=== PATIENT | female | born 1980 | race African-American/Black ===

== ENCOUNTER 2016-07-05 18:34 | Emergency (ER) | payer OTHER ==
[~2016-07-05 18:34] MED LIST: Sodium Chloride 0.9% 100 ML BAG ONE
[2016-07-05] MEDS ORDERED: Ondansetron HCl/PF 4 MG/2 ML Vial ONE (19:33)
[2016-07-05] MEDS ORDERED: Dexamethasone 10 MG/ML VIAL ONE (19:33)
[2016-07-05] MEDS ORDERED: methylPREDNISolone Sod Succ/PF 125 MG/2 ML VIAL ONE (19:34)
[2016-07-05] MEDS ORDERED: cefTRIAXone\\ROCEPHIN 1 GM VIAL ONE (19:34)
--- NOTE | 2016-07-05 19:40 | RAD ---
RADIOGRAPH CHEST 1 VIEW: HISTORY: 35-YEAR-OLD FEMALE WITH ACUTE DYSPNEA. FINDINGS: There are no air space densities, pulmonary edema, pneumothorax, or cardiomegaly. The lateral costo phrenic angles are sharp. IMPRESSION: No acute cardiopulmonary findings. michelle POS: [place]
[2016-07-05 19:43] LABS: Hemoglobin 12.1 g/dL (12.0-16.0); Mean Corpuscular HGB CONC 33.5 g/dL (32.0-36.0); Mean Corpuscular Hemoglobin 32.8 pg (27.0-31.0); Mean Corpuscular Volume 97.7 fl (81.0-99.0); Mean Platelet Volume 9.1 fL (7.4-10.4); Platelet Count 282 thou/uL (130-400); RBC Distribution Width 11.4 % (11.5-14.5); Red Blood Cell (RBC) Count 3.71 mill/uL (4.20-5.40)
[2016-07-05 19:44] LABS: Lymphocytes 39 % (21-51); MDiff Complete? YES; Neutrophil 47 % (42-75)
[2016-07-05 19:45] LABS: Band 8 % (5-11)
[2016-07-05 19:46] LABS: Eosinophils 1 % (0-10); Monocytes 5 % (0-10)
[2016-07-05 19:50] LABS: ALT (SGPT) 19 U/L (0-55); AST (SGOT) 21 U/L (5-34); Alkaline Phosphatase 74 U/L (40-150); Anion Gap 16 mmol/L (10-20); BUN (Urea Nitrogen) 9 mg/dL (7.0-18.7); Bilirubin, Total Less than 0.3 mg/dL (0.2-1.2); Calc. Creatinine Clearance 0 mL/min (70-130); Calcium 9.2 mg/dL (7.8-10.44); Carbon Dioxide 25 mmol/L (22-29); Chloride 103 mmol/L (98-107); Estimated GFR-MDRD Greater than 90; Globulin 2.9 g/dL (2.4-3.5); Glucose 92 mg/dL (70-105); Potassium 3.6 mmol/L (3.5-5.1); Protein, Total 6.9 g/dL (6.0-8.3); Sodium 141 mmol/L (136-145)
--- NOTE | 2016-07-05 22:39 | ERRECORD ---
[facility] EMERGENCY RECORD HPI SHORTNESS OF BREATH (20:12 LLDO) CHIEF COMPLAINT: Patient presents for evaluation of shortness of breath, Denies chest pain, Patient presents for evaluation of see triage note. cough worse today. HISTORIAN: History provided by patient, History provided by patient's spouse. LOCATION: Symptoms are generalized. QUALITY: Symptoms described as tightness. SEVERITY: Maximum severity of symptoms severe, Currently symptoms are moderate. TIME COURSE: Gradual onset of symptoms, Symptoms are worsening, are constant. ASSOCIATED WITH: Associated with anxiety, Associated with cough, Associated with chest pain, Associated with fever. EXACERBATED BY: Patient's condition exacerbated by deep breaths, Patient's condition exacerbated by exercise, Patient's condition exacerbated by lying flat, Patient's condition exacerbated by smoking. RELIEVED BY: Patient's condition relieved by nothing because patient has not tried anything for relief. RISK FACTORS: Coronary artery disease risk factors, not applicable for this patient, Thoracic aortic dissection risk factors, not applicable for this patient, Pulmonary embolism risk factors, not applicable to this patient. ROS CONSTITUTIONAL: Historian reports fatigue, reports fever, reports malaise, reports weakness. (20:22 LLDO) EYES: Negative eye review of systems, Historian denies eye pain, denies eye redness, denies eye discharge. (20:30 LLDO) ENT: Historian reports sore throat. (20:22 LLDO) CARDIOVASCULAR: Historian reports chest pain, pleuritic, no radiation, Historian reports dyspnea on exertion. (20:22 LLDO) RESPIRATORY: Historian reports cough, reports sputum. described as thick, green, yellow, Historian reports wheezing. (20:22 LLDO) GI: Historian reports nausea. (20:22 LLDO) GENITOURINARY FEMALE: Negative genitourinary review of systems, Historian denies dysuria, denies frequency, denies urgency. (20:30 LLDO) MUSCULOSKELETAL: Historian reports myalgias. (20:22 LLDO) SKIN: Negative skin review of systems, Historian denies cellulitis, denies rash, denies skin changes, denies skin lesions. (20:30 LLDO) NEUROLOGIC: Historian denies confusion, denies dizziness, denies dysphasia, denies focal weakness, denies gait changes, reports headache, denies irritability, denies lethargy, denies mental status changes. (20:22 LLDO) &a-1R&a+25V*p+0X*a3802P*c152B*c15G*c2P*p-0X&a-25V&a+1RName: Montserrat Krueger : 1980 F35 MedRec: [id number] AcctNum: [id number] Prepared: Saritha Jul 05, 2016 22:06 by Interface Page 1 of 4 pMD [facility] EMERGENCY RECORD HEMO/LYMPHATIC: Normal hematologic/lymphatic system review, Historian denies abnormal blood clotting, denies gum bleeding, denies petechiae. (20:30 LLDO) ALLERGIC/IMMUNOLOGIC: Normal allergy/immunologic system review, Historian denies eczema, denies environmental allergies, denies food allergies. (20:30 LLDO) PSYCHIATRIC: Historian reports anxiety, reports depression. (20:22 LLDO) NOTES: All systems reviewed, negative except as described above. (20:22 LLDO) PAST MEDICAL HISTORY MEDICAL HISTORY: Notes: VERIFIED 04-19-16, , Past medical history includes endocrine disease, hypothyroidism, Past medical history includes history of human immunodeficiency virus, currently under treatment, Past medical history includes history of hypertension, which has been treated, Flu vaccine up to date,ANXIETY, HYPOTHYROIDISM. REVIEWED 07/05/16. (18:42 RICCARDO) FEMALE SURGICAL HISTORY: VERIFIED 04-19-16, , Surgical history of section,. REVIEWED 07/05/16. (18:42 RICCARDO) PSYCHIATRIC HISTORY: Psychiatric history includes, anxiety, depression, Notes: VERIFIED 04-19-16, , Psychiatric history includes, anxiety, bipolar disorder, depression. REVIEWED 07/05/16. (18:42 RICCARDO) SOCIAL HISTORY: Patient denies alcohol use, Patient currently uses drugs, Drug history notes: STATES 'NONE TODAY', Patient currently uses tobacco, smokes cigarettes, daily, Patient drinks socially, twice a month, Patient currently uses drugs, abuses methamphetamines,. (18:42 RICCARDO) NOTES: Nursing records reviewed, Agree with nursing records, Medication list reviewed. (20:29 LLDO) KNOWN ALLERGIES Abilify: - Swelling to face and arms aripiprazole (Unconfirmed) Haldol tablet: - Locks up her jaw haloperidol (Unconfirmed) naproxen: - SWELLS EYES Toradol: - SWELLS EYES traMADol: - SWELLS EYES CURRENT MEDICATIONS No recorded medications VITAL SIGNS VITAL SIGNS: BP: 137/74, Pulse: 100, Resp: 22, Pain: 9, O2 sat: 99 on Room Air, Time: 07/05/2016 18:39. (18:39 RICCARDO) Temp: 98.9 (Tympanic), Time: 07/05/2016 18:41. (18:41 RICCARDO) BP: 132/71, Pulse: 87, Resp: 20, O2 sat: 100 on Room Air, Time: 07/05/2016 19:23. (19:23 RICCARDO) BP: 126/57, Pulse: 93, Resp: 16, Pain: asleep, O2 sat: 100 on Room Air, &a-1R&a+25V*p+0X*s0561Y*c152B*c15G*c2P*p-0X&a-25V&a+1RName: Pati Montserrat : 1980 F35 MedRec: [id number] AcctNum: [id number] Prepared: Saritha Jul 05, 2016 22:06 by Interface Page 2 of 4 pMD [facility] EMERGENCY RECORD Time: 07/05/2016 20:11. (20:11 RICCARDO) BP: 133/70, Pulse: 91, Resp: 16, O2 sat: 99 on Room Air, Time: 07/05/2016 21:39. (21:39 RICCARDO) PHYSICAL EXAM CONSTITUTIONAL: Vital Signs Reviewed, Patient afebrile, Pulse normal, Blood pressure normal, Respiratory rate normal, Normal pulse oximetry, Patient appears non toxic, Patient appears, in moderate pain distress, SEVERE WITH COUGH, Patient alert and oriented to person, place and time, Nursing notes reviewed. (20:27 LLDO) HEAD: Head exam normal, Head exam included findings of head atraumatic, normocephalic. (20:30 LLDO) EYES: Eye exam normal, Eye exam included findings of eyelids normal to inspection, Pupils equally round and reactive to light, Extraocular muscles intact. (20:30 LLDO) ENT: Ear exam normal, Nose exam normal, Pharynx, injected bilaterally, with swelling bilaterally, symmetrical, Uvula exam normal. (20:27 LLDO) NECK: Neck exam normal, Neck exam included findings of normal range of motion, Trachea midline, no meningeal signs, no tenderness. (20:30 LLDO) RESPIRATORY CHEST: Respiratory exam included findings of no respiratory distress, Wheezing present, Rales present, Chest exam included findings of chest movement symmetrical, Chest expansion equal, Tenderness, moderate, to bilateral anterior chest, Palpation of chest reproduces symptoms, WHEEZES MILD AND DIFFUSE AND RALES MODERATE AND DIFFUSE. (20:27 LLDO) CARDIOVASCULAR: Cardiovascular assessment normal, Cardiovascular exam included findings of heart rate regular rate and rhythm, Heart sounds normal. (20:30 LLDO) ABDOMEN FEMALE: Abdominal exam normal, Abdominal exam included findings of abdomen nontender, Bowel sounds normal, no peritoneal signs. (20:30 LLDO) BACK: Back exam normal, Back exam included findings of normal inspection, range of motion normal. (20:30 LLDO) UPPER EXTREMITY: Upper extremity exam normal, Upper extremity exam included findings of inspection normal, Range of motion normal. (20:30 LLDO) LOWER EXTREMITY: Lower extremity exam normal, Lower extremity exam included findings of inspection normal, Range of motion normal. (20:30 LLDO) NEURO: Neuro exam normal, Neuro exam findings include patient oriented to person, place and time, Speech normal, Olimpia coma scale 15. (20:30 LLDO) SKIN: Skin exam normal, Skin exam included findings of skin warm, dry, and normal in color, no rash. (20:30 LLDO) PSYCHIATRIC: Psychiatric exam normal, Psychiatric exam included findings of patient oriented to person place and time, Normal affect. (20:30 LLDO) &a-1R&a+25V*p+0X*m8993G*c152B*c15G*c2P*p-0X&a-25V&a+1RName: Montserrat Krueger : 1980 F35 MedRec: [id number] AcctNum: [id number] Prepared: Saritha Jul 05, 2016 22:06 by Interface Page 3 of 4 pMD [facility] EMERGENCY RECORD MEDICATION ADMINISTRATION SUMMARY Drug Name: Duramorph (PF), Dose Ordered: 4 mg, Route: IV Push, Status: Ordered, Time: 18:57 07/05/2016, Drug Name: DuoNeb, Dose Ordered: 1 inhalation, Route: Nebulize, Status: Given, Time: 19:56 07/05/2016, Drug Name: Rocephin intravenous, Dose Ordered: 1 g, Route: IV Piggy Back, Status: Given, Time: 19:50 07/05/2016, Drug Name: Solu-MEDROL Mix-O-Vial, Dose Ordered: 125 mg, Route: IV Push, Status: Given, Time: 19:49 07/05/2016, Drug Name: Decadron injection, Dose Ordered: 10 mg, Route: IV Push, Status: Given, Time: 19:44 07/05/2016, Drug Name: Zofran intravenous, Dose Ordered: 8 mg, Route: IV Push, Status: Given, Time: 19:42 07/05/2016, Drug Name: DuoNeb, Dose Ordered: 1 inhalation, Route: Nebulize, Status: Given, Time: 19:31 07/05/2016, Detailed record available in Medication Service section. PROBLEM LIST No recorded problems DIAGNOSIS (21:42 LLDO) FINAL: PRIMARY: Acute bronchitis, ADDITIONAL: RIGHT hip pain. PRESCRIPTION (21:48 LLDO) gabapentin: TABLET : 300 mg : ORAL : Quantity: 1 Unit: tab(s) Route: ORAL Schedule: 2 times a day Dispense: 30 Unit: tab(s) May substitute. Refills: 1 . amoxicillin: CAPSULE (HARD, SOFT, ETC.) : 500 mg : ORAL : Quantity: 1 Unit: cap(s) Route: ORAL Schedule: 3 times a day Dispense: 30 Unit: cap(s) May substitute. Refills: No Refills . Phenergan DM: SYRUP : : ORAL : Quantity: 1-2 Unit: teaspoon Route: ORAL Schedule: every 4 hours prn Dispense: 180 Unit: mL May substitute. Refills: No Refills . predniSONE oral: TABLET : 20 mg : ORAL : Quantity: * Unit: Route: ORAL Schedule: See Notes Dispense: 2O May substitute. Refills: No Refills . NOTES: 3 TABS PER DAY FOR 3 DAYS, THEN 2 TABS PER DAY FOR 3 DAYS, THEN ONE TAB PER DAY UNTIL GONE. DISPOSITION PATIENT: Disposition Type: Discharge, Disposition: *Discharge Home. (21:42 ZAHIRA) Patient left the department. (22:02 RICCARDO) Goodman: RICCARDO=TABITHA Milian, Mira RODRIGES=MD Hakan, Victoriano &a-1R&a+25V*p+0X*[id number]*c152B*c15G*c2P*p-0X&a-25V&a+1RName: Montserrat Krueger : 1980 F35 MedRec: [id number] AcctNum: [id number] Prepared: Saritha Jul 05, 2016 22:06 by Interface Page 4 of 4 pMD MTDD
--- NOTE | 2016-07-05 22:47 | PICIS ---
[facility] EMERGENCY RECORD TRIAGE (WedJul 05, 2016 18:40 RICCARDO) TRIAGE NOTES: Cough for one week, fever, shortness of breath started tonight. (WedJul 05, 2016 18:40 RICCARDO) PATIENT: NAME: Montserrat Krueger, AGE: 35, GENDER: female, : Wed1980, TIME OF GREET: WedJul 05, 2016 18:35, PREFERRED LANGUAGE: Brazilian, ETHNICITY: Not or , HIGH ALERT: HIGH ALERT 3, FALL RISK: NO, ECODE BILLING MAP: [facility], SSN: [id number], Zip Code: [address], KG WEIGHT: 73.03, PHONE: , , , PERSON ID: [id number], PCP: MD RIVERA IMELDA. (WedJul 05, 2016 18:40 RICCARDO) COMPLAINT: TROUBLE BREATHING. (WedJul 05, 2016 18:40 RICCARDO) ADMISSION: URGENCY: 3 Urgent, ADMISSION SOURCE: Home, TRANSPORT: Walk-in, BED: TRIAGE. (WedJul 05, 2016 18:40 RICCARDO) ASSESSMENT: Additional Triage notes: Patient c/o cough and shortness of breath. Cough x1 week. SOB started earlier this evening. (18:42 RICCARDO) IMMUNIZATIONS: Flu vaccine not up to date, Tetanus immunization up to date, Pneumococcal vaccine not up to date. (18:42 RICCARDO) SIRS SCORING: Heart Rate 110-139 (2), Temp range 96.8-101.1 (0), respiratory rate 12-24 (0), Latest WBC 3-14.9 (0), Mental Status altered: no (0), Infection or Suspected Infection: No. (18:42 RICCARDO) PROVIDERS: TRIAGE NURSE: Mira Milian RN. (WedJul 05, 2016 18:40 RICCARDO) VITAL SIGNS: BP 137/74, Pulse 100, Resp 22, Pain 9, O2 Sat 99, on Room Air, Time 07/05/2016 18:39. (18:39 RICCARDO) PREVIOUS VISIT ALLERGIES: Abilify, Haldol tablet, naproxen, Toradol, traMADol. (WedJul 05, 2016 18:40 RICCARDO) Abilify, Haldol tablet, naproxen, Toradol, traMADol. (18:42 RICCARDO) KNOWN ALLERGIES Abilify: - Swelling to face and arms aripiprazole (Unconfirmed) Haldol tablet: - Locks up her jaw haloperidol (Unconfirmed) naproxen: - SWELLS EYES Toradol: - SWELLS EYES traMADol: - SWELLS EYES CURRENT MEDICATIONS No recorded medications VITAL SIGNS VITAL SIGNS: BP: 137/74, Pulse: 100, Resp: 22, Pain: 9, O2 sat: 99 on Room Air, Time: 07/05/2016 18:39. (18:39 RICCARDO) Temp: 98.9 (Tympanic), Time: 07/05/2016 18:41. (18:41 RICCARDO) BP: 132/71, Pulse: 87, Resp: 20, O2 sat: 100 on Room Air, Time: 07/05/2016 19:23. (19:23 RICCARDO) BP: 126/57, Pulse: 93, Resp: 16, Pain: asleep, O2 sat: 100 on Room Air, &a-1R&a+25V*p+0X*p8385O*c152B*c15G*c2P*p-0X&a-25V&a+1RName: Montserrat Krueger : 1980 F35 MedRec: [id number] AcctNum: [id number] Prepared: Saritha Jul 05, 2016 22:06 by Interface Page [address] [facility] EMERGENCY RECORD Time: 07/05/2016 20:11. (20:11 RICCARDO) BP: 133/70, Pulse: 91, Resp: 16, O2 sat: 99 on Room Air, Time: 07/05/2016 21:39. (21:39 RICCARDO) NURSING ASSESSMENT: RESPIRATORY /CHEST (18:45 RICCARDO) CONSTITUTIONAL: Patient arrives ambulatory, Gait steady, History obtained from patient, Patient appears comfortable, Patient cooperative, Patient alert, Oriented to person, place and time, Skin warm, Skin dry, Skin normal in color, Mucous membranes pink, Mucous membranes moist, Patient is well-groomed, Patient c/o cough for one week and shortness of breath that started eralier this evening. RESPIRATORY/CHEST: Breath sounds clear, Respiratory assessment findings include respiratory effort easy, Respirations regular, Conversing normally, Neck and chest exam findings include trachea midline, Chest expansion equal, Chest movement symmetrical, Associated with cough, productive of, yellow sputum. ENT: Ear assessment findings include ear normal to inspection, Nasal assessment findings include nose normal to inspection, Sinuses normal, Nasal mucosa normal, Mouth and throat assessment findings include mouth inspection normal, Uvula normal, Tonsils normal, Mucous membranes pink, and moist, Able to swallow, Speech normal. SAFETY: Side rails up, Cart/Stretcher in lowest position, Call light within reach, Hospital ID band on. NURSING PROCEDURE: DISCHARGE NOTE (22:02 RICCARDO) DISCHARGE: Patient discharged to home, ambulating without assistance, family driving, unaccompanied, Discharge instructions given to patient, Prescriptions given and instructions on side effects given, Above person(s) verbalized understanding of discharge instructions and follow-up care. BELONGINGS: Belongings and valuables with patient upon arrival to the Emergency Department include:, Belongings and valuables with patient at time of discharge include:, Belongings remain with patient, Valuables remain with patient. SAFETY: Side rails up, Cart/Stretcher in lowest position, Call light within reach, Hospital ID band on. NURSING PROCEDURE: ENT (19:10 RICCARDO) PATIENT IDENTIFIER: Patient actively involved in identification process, Patient's identity verified by patient stating name, Patient's identity verified by patient stating date, Patient's identity verified by hospital ID bracelet. ENT: Nasal swab collected, labeled in the presence of the patient and sent to lab for testing of, influenza A, influenza B, collected by JAY. SAFETY: Side rails up, Cart/Stretcher in lowest position, Call light within reach, Hospital ID band on. NURSING PROCEDURE: IV (21:58 RICCARDO) &a-1R&a+25V*p+0X*i7208E*c152B*c15G*c2P*p-0X&a-25V&a+1RName: Pati Montserrat : 1980 F35 MedRec: [id number] AcctNum: [id number] Prepared: Saritha Jul 05, 2016 22:06 by Interface Page [address] [facility] EMERGENCY RECORD PATIENT IDENITIFIER: Patient actively involved in identification process, Patient's identity verified by patient stating name, Patient's identity verified by patient stating date, Patient's identity verified by hospital ID bracelet. FOLLOW-UP SITE 1: IV discontinued, due to patient being discharged, catheter intact. SAFETY: Side rails up, Cart/Stretcher in lowest position, Call light within reach, Hospital ID band on. NURSING PROCEDURE: NURSE NOTES NURSES NOTES: Patient assisted to bathroom with steady gait. (19:10 RICCARDO) Notes: Patient resting in the bed looking at FB on her phone. Patient is alert and oriented, no acute distress. No needs at this time. (19:15 RICCARDO) Notes: Patient asleep in the room. No acute distress. No needs at this time. (20:10 RICCARDO) ORDER DETAILS Order Name: CBC with Differential, Status: Active, Time: 18:59 07/05/2016, User: ZAHIRA, - Ordered for: MD Mcclendon Lloyd, - Entered by: MD Mcclendon Lloyd - Sun Jul 05, 2016 18:59, - Quantity: 1, Order Name: Comprehensive Metabolic Panel, Status: Active, Time: 18:59 07/05/2016, User: CONNIEDO, - Ordered for: MD Mcclendon Lloyd, - Entered by: MD Mcclendon Lloyd - Sun Jul 05, 2016 18:59, - Quantity: 1, Order Name: Influenza A&B Ag Screen, Status: Active, Time: 19:04 07/05/2016, User: LL, - Ordered for: MD Mcclendon Lloyd, - Entered by: MD Mcclendon Lloyd - Sun Jul 05, 2016 19:04, - Quantity: 1, Order Name: SALINE LOCK, Status: Done, Time: 19:23 07/05/2016, User: RICCARDO, - Ordered for: MD Mcclendon Lloyd, - Entered by: MD Mcclendon Lloyd - Sun Jul 05, 2016 19:03, - Quantity: 1, Order Name: XR Chest 1 View Portable, Status: Active, Time: 19:03 07/05/2016, User: LLDO, - Ordered for: MD Mcclendon Lloyd, - Entered by: MD Mcclendon Lloyd - Sun Jul 05, 2016 19:03, - Quantity: 1. MEDICATION ADMINISTRATION SUMMARY Drug Name: Duramorph (PF), Dose Ordered: 4 mg, Route: IV Push, Status: Ordered, Time: 18:57 07/05/2016, Drug Name: DuoNeb, Dose Ordered: 1 inhalation, Route: Nebulize, &a-1R&a+25V*p+0X*p5383T*c152B*c15G*c2P*p-0X&a-25V&a+1RName: Montserrat Krueger : 1980 F35 MedRec: [id number] AcctNum: [id number] Prepared: Saritha Jul 05, 2016 22:06 by Interface Page [address] [facility] EMERGENCY RECORD Status: Given, Time: 19:56 07/05/2016, Drug Name: Rocephin intravenous, Dose Ordered: 1 g, Route: IV Piggy Back, Status: Given, Time: 19:50 07/05/2016, Drug Name: Solu-MEDROL Mix-O-Vial, Dose Ordered: 125 mg, Route: IV Push, Status: Given, Time: 19:49 07/05/2016, Drug Name: Decadron injection, Dose Ordered: 10 mg, Route: IV Push, Status: Given, Time: 19:44 07/05/2016, Drug Name: Zofran intravenous, Dose Ordered: 8 mg, Route: IV Push, Status: Given, Time: 19:42 07/05/2016, Drug Name: DuoNeb, Dose Ordered: 1 inhalation, Route: Nebulize, Status: Given, Time: 19:31 07/05/2016, Detailed record available in Medication Service section. MEDICATION SERVICE Decadron injection: Order: Decadron injection (dexamethasone sod phosphate) - Dose: 10 mg : IV Push Schedule: Now Ordered by: Victoriano Mcclendon MD Entered by: MD Saritha Jimenez Jul 05, 2016 18:57 , Acknowledged by: TABITHA Bundy Jul 05, 2016 19:04 Documented as given by: TABITHA Bundy Jul 05, 2016 19:44 Patient, Medication, Dose, Route and Time verified prior to administration. IV SITE #1 IVP, initial medication, Slowly, Catheter placement confirmed via flush prior to administration, IV site without signs or symptoms of infiltration during medication administration, No swelling during administration, No drainage during administration, IV flushed after administration, Correct patient, time, route, dose and medication confirmed prior to administration, Patient advised of actions and side-effects prior to administration, Allergies confirmed and medications reviewed prior to administration, Patient in position of comfort, Side rails up, Cart in lowest position. DuoNeb: Order: DuoNeb (ipratropium bromide/albuterol sulfate) - Dose: 1 inhalation : Nebulize Schedule: Every 5 minutes Repeat: 3 DOSES Ordered by: Victoriano Mcclendon MD Entered by: MD Saritha Jimenez Jul 05, 2016 18:57 , Acknowledged by: TABITHA Bundy Jul 05, 2016 19:04 Documented as given by: TABITHA Bundy Jul 05, 2016 19:31 Patient, Medication, Dose, Route and Time verified prior to administration. Site: Medication administered via continuous nebulizer, With oxygen, Correct patient, time, route, dose and medication confirmed prior to administration, Patient advised of actions and side-effects prior to administration, Allergies confirmed and medications reviewed prior to administration, Patient in position of comfort, Side rails up, Cart in lowest position. DuoNeb: Order: DuoNeb (ipratropium bromide/albuterol sulfate) - Dose: 1 inhalation : Nebulize Schedule: Every 5 minutes Repeat: 3 DOSES Ordered by: Victoriano Mcclendon MD &a-1R&a+25V*p+0X*s3178X*c152B*c15G*c2P*p-0X&a-25V&a+1RName: Pati Montserrat : 1980 F35 MedRec: [id number] AcctNum: [id number] Prepared: Saritha Jul 05, 2016 22:06 by Interface Page [address] [facility] EMERGENCY RECORD Entered by: TABITHA Bundy Jul 05, 2016 19:56 , Acknowledged by: TABITHA Bundy Jul 05, 2016 19:56 Documented as given by: TABIHTA Bundy Jul 05, 2016 19:56 Patient, Medication, Dose, Route and Time verified prior to administration. Site: Medication administered via Hand-held nebulizer, With oxygen, Correct patient, time, route, dose and medication confirmed prior to administration, Patient advised of actions and side-effects prior to administration, Allergies confirmed and medications reviewed prior to administration, Patient in position of comfort, Side rails up, Cart in lowest position. Duramorph (PF): Order: Duramorph (PF) (morphine sulfate/preservative free) - Dose: 4 mg : IV Push POTENTIAL ALLERGY REACTION: 'traMADol [tramadol/tramadol HCl]' - Reviewed with patient, pt says can safely take this med Schedule: Now Ordered by: Victoriano Mcclendon MD Entered by: Victoriano Mcclendon MD [place] Jul 05, 2016 18:57 , Acknowledged by: Mira Milian RN [place] Jul 05, 2016 19:04. Rocephin intravenous: Order: Rocephin intravenous (ceftriaxone sodium) - Dose: 1 g : IV Piggy Back Schedule: Now Ordered by: Victoriano Mcclendon MD Entered by: Victoriano Mcclendon MD [place] Jul 05, 2016 18:57 , Acknowledged by: Mira Milian RN [place] Jul 05, 2016 19:04 Documented as given by: Mira Milian RN [place] Jul 05, 2016 19:50 Patient, Medication, Dose, Route and Time verified prior to administration. IV SITE #1 IVPB or drip, initial infusion, IVPB mixed in: 100ml, Fluid: 0.9NS, via primary tubing, on an IV pump, Catheter placement confirmed via flush prior to administration, IV site without signs or symptoms of infiltration during medication administration, No swelling during administration, No drainage during administration, IV flushed after administration, Correct patient, time, route, dose and medication confirmed prior to administration, Patient advised of actions and side-effects prior to administration, Allergies confirmed and medications reviewed prior to administration, Patient in position of comfort, Side rails up, Cart in lowest position. : Follow Up : _IV SITE #1:_, Medication infusion discontinued, on [place] Jul 05, 2016 20:40, 50 minutes, ., Total amount infused: 100 ml, Advised not to ambulate without assistance, Patient in position of comfort, Side rails up, Cart in lowest position. (20:40 RICCARDO) Solu-MEDROL Mix-O-Vial: Order: Solu-MEDROL Mix-O-Vial (methylprednisolone sod succ) - Dose: 125 mg : IV Push Schedule: Now Ordered by: Victoriano Mcclendon MD Entered by: MD Saritha Jimenez Jul 05, 2016 18:57 , Acknowledged by: TABITHA Bundy Jul 05, 2016 19:04 Documented as given by: TABITHA Bundy Jul 05, 2016 19:49 Patient, Medication, Dose, Route and Time verified prior to &a-1R&a+25V*p+0X*o8126O*c152B*c15G*c2P*p-0X&a-25V&a+1RName: Montserrat Krueger : 1980 F35 MedRec: [id number] AcctNum: [id number] Prepared: Saritha Jul 05, 2016 22:06 by Interface Page [address] [facility] EMERGENCY RECORD administration. IV SITE #1 IVP, initial medication, Slowly, Catheter placement confirmed via flush prior to administration, IV site without signs or symptoms of infiltration during medication administration, No swelling during administration, No drainage during administration, IV flushed after administration, Correct patient, time, route, dose and medication confirmed prior to administration, Patient advised of actions and side-effects prior to administration, Allergies confirmed and medications reviewed prior to administration, Patient in position of comfort, Side rails up, Cart in lowest position. Zofran intravenous: Order: Zofran intravenous (ondansetron HCl) - Dose: 8 mg : IV Push Schedule: Now Ordered by: Victoriano Mcclendon MD Entered by: MD Saritha Jimenez Jul 05, 2016 18:58 , Acknowledged by: TABITHA Bundy Jul 05, 2016 19:04 Documented as given by: TABITAH Bundy Jul 05, 2016 19:42 Patient, Medication, Dose, Route and Time verified prior to administration. IV SITE #1 IVP, initial medication, Slowly, Catheter placement confirmed via flush prior to administration, IV site without signs or symptoms of infiltration during medication administration, No swelling during administration, No drainage during administration, IV flushed after administration, Correct patient, time, route, dose and medication confirmed prior to administration, Patient advised of actions and side-effects prior to administration, Allergies confirmed and medications reviewed prior to administration, Patient in position of comfort, Side rails up, Cart in lowest position. HPI SHORTNESS OF BREATH (20:12 LLDO) CHIEF COMPLAINT: Patient presents for evaluation of shortness of breath, Denies chest pain, Patient presents for evaluation of see triage note. cough worse today. HISTORIAN: History provided by patient, History provided by patient's spouse. LOCATION: Symptoms are generalized. QUALITY: Symptoms described as tightness. SEVERITY: Maximum severity of symptoms severe, Currently symptoms are moderate. TIME COURSE: Gradual onset of symptoms, Symptoms are worsening, are constant. ASSOCIATED WITH: Associated with anxiety, Associated with cough, Associated with chest pain, Associated with fever. EXACERBATED BY: Patient's condition exacerbated by deep breaths, Patient's condition exacerbated by exercise, Patient's condition exacerbated by lying flat, Patient's condition exacerbated by smoking. RELIEVED BY: Patient's condition relieved by nothing because patient has not tried anything for relief. RISK FACTORS: Coronary artery disease risk factors, not applicable for this patient, Thoracic aortic dissection risk factors, not applicable for this patient, &a-1R&a+25V*p+0X*q1399S*c152B*c15G*c2P*p-0X&a-25V&a+1RName: Pati Montserrat : 1980 F35 MedRec: [id number] AcctNum: [id number] Prepared: Saritha Jul 05, 2016 22:06 by Interface Page [address] [facility] EMERGENCY RECORD Pulmonary embolism risk factors, not applicable to this patient. ROS CONSTITUTIONAL: Historian reports fatigue, reports fever, reports malaise, reports weakness. (20:22 LLDO) EYES: Negative eye review of systems, Historian denies eye pain, denies eye redness, denies eye discharge. (20:30 LLDO) ENT: Historian reports sore throat. (20:22 LLDO) CARDIOVASCULAR: Historian reports chest pain, pleuritic, no radiation, Historian reports dyspnea on exertion. (20:22 LLDO) RESPIRATORY: Historian reports cough, reports sputum. described as thick, green, yellow, Historian reports wheezing. (20:22 LLDO) GI: Historian reports nausea. (20:22 LLDO) GENITOURINARY FEMALE: Negative genitourinary review of systems, Historian denies dysuria, denies frequency, denies urgency. (20:30 LLDO) MUSCULOSKELETAL: Historian reports myalgias. (20:22 LLDO) SKIN: Negative skin review of systems, Historian denies cellulitis, denies rash, denies skin changes, denies skin lesions. (20:30 LLDO) NEUROLOGIC: Historian denies confusion, denies dizziness, denies dysphasia, denies focal weakness, denies gait changes, reports headache, denies irritability, denies lethargy, denies mental status changes. (20:22 LLDO) HEMO/LYMPHATIC: Normal hematologic/lymphatic system review, Historian denies abnormal blood clotting, denies gum bleeding, denies petechiae. (20:30 LLDO) ALLERGIC/IMMUNOLOGIC: Normal allergy/immunologic system review, Historian denies eczema, denies environmental allergies, denies food allergies. (20:30 LLDO) PSYCHIATRIC: Historian reports anxiety, reports depression. (20:22 LLDO) NOTES: All systems reviewed, negative except as described above. (20:22 LLDO) PAST MEDICAL HISTORY MEDICAL HISTORY: Notes: VERIFIED 04-19-16, , Past medical history includes endocrine disease, hypothyroidism, Past medical history includes history of human immunodeficiency virus, currently under treatment, Past medical history includes history of hypertension, which has been treated, Flu vaccine up to date,ANXIETY, HYPOTHYROIDISM. REVIEWED 07/05/16. (18:42 RICCARDO) FEMALE SURGICAL HISTORY: VERIFIED 04-19-16, , Surgical history of section,. REVIEWED 07/05/16. (18:42 RICCARDO) PSYCHIATRIC HISTORY: Psychiatric history includes, anxiety, depression, Notes: VERIFIED 04-19-16, , Psychiatric history includes, &a-1R&a+25V*p+0X*y9605G*c152B*c15G*c2P*p-0X&a-25V&a+1RName: Montserrat Krueger : 1980 F35 MedRec: [id number] AcctNum: [id number] Prepared: Saritha Jul 05, 2016 22:06 by Interface Page [address] [facility] EMERGENCY RECORD anxiety, bipolar disorder, depression. REVIEWED 07/05/16. (18:42 RICCARDO) SOCIAL HISTORY: Patient denies alcohol use, Patient currently uses drugs, Drug history notes: STATES 'NONE TODAY', Patient currently uses tobacco, smokes cigarettes, daily, Patient drinks socially, twice a month, Patient currently uses drugs, abuses methamphetamines,. (18:42 RICCARDO) NOTES: Nursing records reviewed, Agree with nursing records, Medication list reviewed. (20:29 LLDO) PHYSICAL EXAM CONSTITUTIONAL: Vital Signs Reviewed, Patient afebrile, Pulse normal, Blood pressure normal, Respiratory rate normal, Normal pulse oximetry, Patient appears non toxic, Patient appears, in moderate pain distress, SEVERE WITH COUGH, Patient alert and oriented to person, place and time, Nursing notes reviewed. (20:27 LLDO) HEAD: Head exam normal, Head exam included findings of head atraumatic, normocephalic. (20:30 LLDO) EYES: Eye exam normal, Eye exam included findings of eyelids normal to inspection, Pupils equally round and reactive to light, Extraocular muscles intact. (20:30 LLDO) ENT: Ear exam normal, Nose exam normal, Pharynx, injected bilaterally, with swelling bilaterally, symmetrical, Uvula exam normal. (20:27 LLDO) NECK: Neck exam normal, Neck exam included findings of normal range of motion, Trachea midline, no meningeal signs, no tenderness. (20:30 LLDO) RESPIRATORY CHEST: Respiratory exam included findings of no respiratory distress, Wheezing present, Rales present, Chest exam included findings of chest movement symmetrical, Chest expansion equal, Tenderness, moderate, to bilateral anterior chest, Palpation of chest reproduces symptoms, WHEEZES MILD AND DIFFUSE AND RALES MODERATE AND DIFFUSE. (20:27 LLDO) CARDIOVASCULAR: Cardiovascular assessment normal, Cardiovascular exam included findings of heart rate regular rate and rhythm, Heart sounds normal. (20:30 LLDO) ABDOMEN FEMALE: Abdominal exam normal, Abdominal exam included findings of abdomen nontender, Bowel sounds normal, no peritoneal signs. (20:30 LLDO) BACK: Back exam normal, Back exam included findings of normal inspection, range of motion normal. (20:30 LLDO) UPPER EXTREMITY: Upper extremity exam normal, Upper extremity exam included findings of inspection normal, Range of motion normal. (20:30 LLDO) LOWER EXTREMITY: Lower extremity exam normal, Lower extremity exam included findings of inspection normal, Range of motion normal. (20:30 LLDO) NEURO: Neuro exam normal, Neuro exam findings include patient oriented to person, place and time, Speech normal, Olimpia coma scale &a-1R&a+25V*p+0X*q2170P*c152B*c15G*c2P*p-0X&a-25V&a+1RName: Montserrat Krueger : 1980 F35 MedRec: [id number] AcctNum: [id number] Prepared: Saritha Jul 05, 2016 22:06 by Interface Page [address] [facility] EMERGENCY RECORD 15. (20:30 LLDO) SKIN: Skin exam normal, Skin exam included findings of skin warm, dry, and normal in color, no rash. (20:30 LLDO) PSYCHIATRIC: Psychiatric exam normal, Psychiatric exam included findings of patient oriented to person place and time, Normal affect. (20:30 LLDO) EVENTS TRANSFER: Triage to Emergency Triage. (Saritha Jul 05, 2016 18:40 RICCARDO) Emergency Triage to Main ED -02. (18:41 LLDO) Emergency Main ED -02 to -01. (20:34 RICCARDO) Emergency Main ED -01 to -02. (20:34 RICCARDO) Removed from Emergency Main ED -02. (22:02 RICCARDO) PROBLEM LIST No recorded problems DIAGNOSIS (21:42 LLDO) FINAL: PRIMARY: Acute bronchitis, ADDITIONAL: RIGHT hip pain. DISPOSITION PATIENT: Disposition Type: Discharge, Disposition: *Discharge Home. (21:42 LLDO) Patient left the department. (22:02 RICCARDO) INSTRUCTION (21:52 LLDO) DISCHARGE: BRONCHITIS, ABX TX (ADULT), HIP STRAIN. FOLLOWUP: MD MIGUEL, [facility], [facility], [address] [place] [id number], [phone], Follow up with Primary Care Physician in 10 days. SPECIAL: Follow-up with your PCP. PRESCRIPTION (21:48 LLDO) gabapentin: TABLET : 300 mg : ORAL : Quantity: 1 Unit: tab(s) Route: ORAL Schedule: 2 times a day Dispense: 30 Unit: tab(s) May substitute. Refills: 1 . amoxicillin: CAPSULE (HARD, SOFT, ETC.) : 500 mg : ORAL : Quantity: 1 Unit: cap(s) Route: ORAL Schedule: 3 times a day Dispense: 30 Unit: cap(s) May substitute. Refills: No Refills . Phenergan DM: SYRUP : : ORAL : Quantity: 1-2 Unit: teaspoon Route: ORAL Schedule: every 4 hours prn Dispense: 180 Unit: mL May substitute. Refills: No Refills . predniSONE oral: TABLET : 20 mg : ORAL : Quantity: * Unit: Route: ORAL Schedule: See Notes Dispense: 2O May substitute. Refills: No Refills . NOTES: 3 TABS PER DAY FOR 3 DAYS, THEN 2 TABS PER DAY FOR 3 &a-1R&a+25V*p+0X*b8353I*c152B*c15G*c2P*p-0X&a-25V&a+1RName: Montserrat Krueger : 1980 F35 MedRec: [id number] AcctNum: [id number] Prepared: Saritha Jul 05, 2016 22:06 by Interface Page [address] [facility] EMERGENCY RECORD DAYS, THEN ONE TAB PER DAY UNTIL GONE. IMAGING *DISCHARGE INSTRUCTIONS RECEIPT: Image captured from scanner. (22:00 RICCARDO) Page 2 added. Image captured from scanner. (22:00 RICCARDO) *SUPPLY CHARGE SHEET: Image captured from scanner. (22:01 RICCARDO) Page 2 added. Image captured from scanner. (22:02 RICCARDO) ADMIN DIGITAL SIGNATURE: MD Mcclendon Lloyd. (21:50 LLDO) MD Mcclendon Lloyd. (21:53 LLDO) MD Mcclendon Lloyd. (21:53 LLDO) MD Mcclendon Lloyd. (21:53 LLDO) MD Mcclendon Lloyd. (21:53 LLDO) MD Mcclendon Lloyd. (21:53 LLDO) MD Mcclendon Lloyd. (21:53 LLDO) MD Mcclendon Lloyd. (21:53 LLDO) MD Mcclendon Lloyd. (21:53 LLDO) MD Mcclendon Lloyd. (21:53 LLDO) MD Mcclendon Lloyd. (21:53 LLDO) MD Mcclendon Lloyd. (21:53 LLDO) MD Mcclendon Lloyd. (21:53 LLDO) MD Mcclendon Lloyd. (21:53 LLDO) MD Mcclendon Lloyd. (21:53 LLDO) RESULTS (19:57 ADEA) LABORATORY: Comprehensive Metabolic Panel Collection DT: Saritha Jul 05, 2016 19:28, Sodium 141 mmol/L, Range (136-145), Potassium 3.6 mmol/L, Range (3.5-5.1), Chloride 103 mmol/L, Range (98-107), Carbon Dioxide 25 mmol/L, Range (22-29), Anion Gap 16 mmol/L, Range (10-20), BUN (Urea Nitrogen) 9 mg/dL, Range (7.0-18.7), Creatinine 0.86 mg/dL, Range (0.6-1.1), Estimated GFR-MDRD Greater than 90 , Reference Range for Estimated GFR: Greater than 90, mL/min/1.73 m2 NOTE: The MDRD equation has not been validated for use, with the elderly (over 70 years of age), women, patients with, serious comorbid condition or persons with extremes of body size, muscle, mass, or nutritional status. , Glucose 92 mg/dL, Range (70-105), Calcium 9.2 mg/dL, Range (7.8-10.44), Bilirubin, Total Less than 0.3 mg/dL, Range (0.2-1.2), Protein, Total 6.9 g/dL, Range (6.0-8.3), NOTE: Plasma values are generally 0.3 to 0.5 g/dL higher than serum values, due to the presence of fibrinogen. , &a-1R&a+25V*p+0X*i1579G*c152B*c15G*c2P*p-0X&a-25V&a+1RName: Montserrat Krueger : 1980 F35 MedRec: [id number] AcctNum: [id number] Prepared: Saritha Jul 05, 2016 22:06 by Interface Page [address] [facility] EMERGENCY RECORD Albumin 4.0 g/dL, Range (3.5-5.0), Globulin 2.9 g/dL, Range (2.4-3.5), Alb/Glob Ratio 1.4 g/dL, Range (1.2-2.2), Alkaline Phosphatase 74 U/L, Range (40-150), AST (SGOT) 21 U/L, Range (5-34), ALT (SGPT) 19 U/L, Range (0-55). CBC with Differential Collection DT: Saritha Jul 05, 2016 19:28, White Blood Cell (WBC) Count 7.0 thou/uL, Range (4.8-10.8), *Red Blood Cell (RBC) Count 3.71 - L mill/uL, Range (4.20-5.40), Hemoglobin 12.1 g/dL, Range (12.0-16.0), Hematocrit 36.2 %, Range (36.0-47.0), Mean Corpuscular Volume 97.7 fl, Range (81.0-99.0), *Mean Corpuscular Hemoglobin 32.8 - H pg, Range (27.0-31.0), Mean Corpuscular HGB CONC 33.5 g/dL, Range (32.0-36.0), *RBC Distribution Width 11.4 - L %, Range (11.5-14.5), Platelet Count 282 thou/uL, Range (130-400), Mean Platelet Volume 9.1 fL, Range (7.4-10.4), Neutrophil 47 %, Range (42-75), Band 8 %, Range (5-11), Lymphocytes 39 %, Range (21-51), Monocytes 5 %, Range (0-10), Eosinophils 1 %, Range (0-10). MICROBIOLOGY: Influenza A&B Ag Screen: [id number] Collection DT: Saritha Jul 05, 2016 19:28, See comment below , @ ER ROOM#: [id number] Source: Nasal swab Spec Desc: , Influenza A Antigen: NEGATIVE for the , presence of , INFLUENZA A Antigen , Influenza B Antigen: NEGATIVE for the , presence of , INFLUENZA B Antigen , The rapid Flu A&B test can distinguish between influenza A , Influenza A&B Ag Screen See comment below , and B viruses, but it does not differentiate influenza , Influenza A&B Ag Screen See comment below , subtypes. , Influenza A&B Ag Screen See comment below , Influenza A&B Ag Screen See comment below , Influenza A&B Ag Screen See comment below , Influenza A&B Ag Screen See comment below , characteristics of this device with human specimens infected , Influenza A&B Ag Screen See comment below , with the 2008 H1N1 influenza virus have not been , Influenza A&B Ag Screen See comment below , established. For example: this test cannot distinguish , Influenza A&B Ag Screen See comment below , influenza infections caused by novel H1N1 influenza A , Influenza A&B Ag Screen See comment below , viruses versus seasonal influenza A viruses. , Influenza A&B Ag Screen See comment below , , &a-1R&a+25V*p+0X*r9639G*c152B*c15G*c2P*p-0X&a-25V&a+1RName: Montserrat Krueger : 1980 5 MedRec: [id number] AcctNum: [id number] Prepared: Saritha Jul 05, 2016 22:06 by Interface Page [address] [facility] EMERGENCY RECORD Influenza A&B Ag Screen See comment below , A negative result does not exclude influenza virus , Influenza A&B Ag Screen See comment below , infection; therefore, if more conclusive testing is desired, , Influenza A&B Ag Screen See comment below , follow up confirmatory testing is warranted., Influenza A&B Ag Screen See comment below . Goodman: JOSHUA=TABITHA Garcia, Carlos GU=TABITHA Milian, Mira RODRIGES=MD Hakan, Victoriano &a-1R&a+25V*p+0X*n2615Q*c152B*c15G*c2P*p-0X&a-25V&a+1RName: Montserrat Krueger : 1980 F35 MedRec: [id number] AcctNum: [id number] Prepared: Saritha Jul 05, 2016 22:06 by Interface Page [address] [facility] MEDICATION RECONCILIATION You were seen in the Emergency Department on: WedJul 05, 2016 KNOWN ALLERGIES Abilify: - Swelling to face and arms aripiprazole (Unconfirmed) Haldol tablet: - Locks up her jaw haloperidol (Unconfirmed) naproxen: - SWELLS EYES Toradol: - SWELLS EYES traMADol: - SWELLS EYES MEDICATIONS GIVEN WHILE IN THE EMERGENCY DEPARTMENT DuoNeb (ipratropium bromide/albuterol sulfate) - Dose: 1 inhalation : Nebulize Rocephin intravenous (ceftriaxone sodium) - Dose: 1 gram(s) : IV Piggy Back Solu-MEDROL Mix-O-Vial (methylprednisolone sod succ) - Dose: 125 milligram(s) : IV Push Decadron injection (dexamethasone sod phosphate) - Dose: 10 milligram(s) : IV Push Zofran intravenous (ondansetron HCl) - Dose: 8 milligram(s) : IV Push DuoNeb (ipratropium bromide/albuterol sulfate) - Dose: 1 inhalation : Nebulize Notes from the emergency department Reviewed with patient PRESCRIPTIONS (4) Printed (4) gabapentin : TABLET : 300 mg : ORAL Quantity: 1, Unit: tab(s), Route: ORAL, Schedule: 2 times a day, Dispense: 30 Unit: tab(s) amoxicillin : CAPSULE (HARD, SOFT, ETC.) : 500 mg : ORAL Quantity: 1, Unit: cap(s), Route: ORAL, Schedule: 3 times a day, Dispense: 30 Unit: cap(s) Phenergan DM : SYRUP : : ORAL Quantity: 1-2, Unit: teaspoon, Route: ORAL, Schedule: every 4 hours prn, Dispense: 180 Unit: milliliter(s) &a-1R&a+25V*p+0X*k6561Y*c202B*c15G*c2P*p-0X&a-25V&a+1R Name: Montserrat Krueger : 1980 F35 MedRec: [id number] AcctNum: [id number] Prepared: Saritha Jul 05, 2016 22:06 by Interface pMD ARISTE[facility]
== END 2016-07-05 22:00 | disposition home or self-care (01) ==
LOC: MADERS 18:34
DX: J20.9 Acute bronchitis, unspecified (principal); M25.551 Pain in right hip; E03.9 Hypothyroidism, unspecified; I10 Essential (primary) hypertension; F41.9 Anxiety disorder, unspecified; F31.9 Bipolar disorder, unspecified; F17.210 Nicotine dependence, cigarettes, uncomplicated; Z88.6 Allergy status to analgesic agent
CPT/HCPCS: 36415; 71010; 80053; 85025; 96365; 96375; J0696; J1100; J2405; J2930; J7050; J7620

== ENCOUNTER 2016-07-12 12:29 | Emergency (ER) | payer OTHER, SELFPAY ==
--- NOTE | 2016-07-12 12:58 | RAD ---
2 VIEW CHEST: Date: 07/12/16 HISTORY: Shortness of breath. COMPARISON: 08/31/14. FINDINGS: Lung ramsey are clear. No evidence of infiltrate. Heart and mediastinum appear normal. IMPRESSION: Unremarkable chest exam. POS: [facility]
[2016-07-12] MEDS ORDERED: Hyoscyamine Sulfate SL 0.125 mg Tablet ONE ×2 (13:19)
[2016-07-12] MEDS ORDERED: diphenhydrAMINE HCl 50 MG/ML 1 ML VIAL ONE (13:20)
[2016-07-12] MEDS ORDERED: Iopamidol 370 76% 100 ML VIAL ONE (13:40)
[2016-07-12 14:36] LABS: Bilirubin Negative (Negative); Blood, Urine Negative (Negative); Clarity Clear (Clear); Glucose, Urine (Dipstick) Negative (Negative); Leukocyte Negative (Negative); Nitrite Negative (Negative); Protein, Urine (Dipstick) Negative (Neg-Trace); Specific Gravity, Urine 1.025 (1.005-1.030); Urobilinogen 0.2 mg/dL (0.2-1.0)
[2016-07-12 14:55] LABS: RBC/HPF 0-3 HPF (0-3); Renal Epithelial 0-3 HPF (0-3); Squamous Epithelial 21-50 HPF (0-3); Transitional Epithelial 0-3 HPF (0-3)
[2016-07-12 14:56] LABS: Bacteria/HPF Rare-Few HPF (None Seen)
[2016-07-12 15:27] LABS: Amylase 68 U/L (25-125); Anion Gap 22 mmol/L (10-20); BUN (Urea Nitrogen) 20 mg/dL (7.0-18.7); Calc. Creatinine Clearance 0 mL/min (70-130); Calcium 8.8 mg/dL (7.8-10.44); Carbon Dioxide 22 mmol/L (22-29); Chloride 102 mmol/L (98-107); Estimated GFR-MDRD 82; Glucose 101 mg/dL (70-105); Lipase 23 U/L (8-78); Sodium 141 mmol/L (136-145)
[2016-07-12 15:31] LABS: Hemoglobin 13.5 g/dL (12.0-16.0); Mean Corpuscular HGB CONC 34.4 g/dL (32.0-36.0); Mean Corpuscular Hemoglobin 33.8 pg (27.0-31.0); Mean Corpuscular Volume 98.2 fL (81.0-99.0); Mean Platelet Volume 5.7 fL (7.4-10.4); Platelet Count 256 thou/uL (130-400); RBC Distribution Width 12.7 % (11.5-14.5); Red Blood Cell (RBC) Count 3.98 mill/uL (4.20-5.40); White Blood Cell (WBC) Count 7.8 thou/uL (4.8-10.8)
[2016-07-12 15:32] LABS: Eosinophils 1 % (0-10); Lymphocytes 65 % (21-51); MDiff Complete? YES; Manual Diff?? YES; Monocytes 3 % (0-10); Neutrophil 31 % (42-75)
--- NOTE | 2016-07-12 15:41 | CT ---
CONTRAST ENHANCED CT IMAGES OF ABDOMEN AND PELVIS: Date: 07/12/16 HISTORY: Right upper quadrant pain. FINDINGS: Contrast enhanced CT images of the abdomen and pelvis are obtained. The lung bases are unremarkable. No evidence of free intraperitoneal air seen. The liver, spleen, gallbladder, pancreas, adrenal glands, and kidneys are unremarkable. No evidence of free intraperitoneal air seen. A normal appendix is seen. A large amount of stool is seen in the colon. No dilated loops of bowel seen. Osseous structures int act. IMPRESSION: Unremarkable contrast enhanced CT images of abdomen and pelvis. POS: [place]
[2016-07-12 15:45] LABS: ALT (SGPT) 14 U/L (0-55); AST (SGOT) 31 U/L (5-34); Albumin 3.6 g/dL (3.5-5.0); Alkaline Phosphatase 74 U/L (40-150); Bilirubin, Total 0.7 mg/dL (0.2-1.2); Globulin 3.4 g/dL (2.4-3.5)
--- NOTE | 2016-07-12 17:35 | ERRECORD ---
[facility] EMERGENCY RECORD HPI ABDOMINAL PAIN (14:50 LLDO) CHIEF COMPLAINTS: Patient presents for evaluation of abdominal pain, Denies abdominal distention, Denies bloating, Patient presents for evaluation of see triage note. pt was in last week with apparent bronchitis. pt says she was doing better until sudden onset of pain and sob today. the pain, thoughis mostly epigastric with radiation under her right breast and into the right flank. also rad into sub-sternal area. all these areas very tender to palpation. pt says it now feels very much like the colitis she had last march. HISTORIAN: History provided by patient, History provided by patient's family. LOCATION FEMALE: Symptoms are localized. QUALITY: Pain is dull in nature, described as aching. SEVERITY: Maximum severity of symptoms severe, Currently symptoms are severe, pt does not seem to be in extreme pain. TIME COURSE: Sudden onset of symptoms, Symptoms are intermittent, There has been no change in the patient's symptoms over time. ASSOCIATED WITH FEMALE: No associated symptoms, Associated with loss of appetite. RELIEVED BY: Patient's condition relieved by time. EXACERBATED BY: Patient's condition exacerbated by cough, Patient's condition exacerbated by deep breath, Patient's condition exacerbated by movement, Patient's condition exacerbated by PALPATION. RISK FACTORS FEMALE: No ectopic risk factors present, No abdominal aortic aneurysm risk factors, No coronary artery disease risk factors. ROS CONSTITUTIONAL: Historian reports fatigue. (15:39 LLDO) EYES: Negative eye review of systems, Historian denies eye pain, denies eye redness, denies eye discharge. (15:46 LLDO) ENT: Negative ears, nose, throat review of systems, Historian denies epistaxis, denies rhinorrhea, denies sinus pain, denies sore throat. (15:46 LLDO) CARDIOVASCULAR: Historian reports chest pain, pleuritic, substernal, Historian reports dyspnea on exertion. (15:39 LLDO) RESPIRATORY: Historian reports cough, reports sputum. described as thick, yellow, Historian denies stridor, denies wheezing. (15:39 LLDO) GI: Historian reports abdominal pain, reports anorexia, reports appetite changes, denies constipation, denies diarrhea, denies hematochezia, denies jaundice, denies melena, denies nausea, denies stool changes, denies vomiting. (15:39 LLDO) GENITOURINARY FEMALE: Negative genitourinary review of systems, Historian denies dysuria, denies frequency, denies urgency. (15:46 LLDO) MUSCULOSKELETAL: Negative musculoskeletal review of systems, Historian denies arthralgias, denies back pain, denies injury, denies &a-1R&a+25V*p+0X*q5370L*c152B*c15G*c2P*p-0X&a-25V&a+1RName: Montserrat Krueger : 1980 F35 MedRec: [id number] AcctNum: [id number] Prepared: Saritha Jul 12, 2016 17:58 by Interface Page 1 of 5 pMD [facility] EMERGENCY RECORD myalgias, denies neck pain. (15:46 LLDO) SKIN: Negative skin review of systems, Historian denies cellulitis, denies rash, denies skin changes, denies skin lesions. (15:46 LLDO) NEUROLOGIC: Negative neurologic review of systems, Historian denies confusion, denies dizziness, denies focal weakness, denies mental status changes. (15:46 LLDO) HEMO/LYMPHATIC: Normal hematologic/lymphatic system review, Historian denies abnormal blood clotting, denies gum bleeding, denies petechiae. (15:46 LLDO) ALLERGIC/IMMUNOLOGIC: Normal allergy/immunologic system review, Historian denies eczema, denies environmental allergies, denies food allergies. (15:46 LLDO) PSYCHIATRIC: Negative psychiatric review of systems, Historian denies alcohol abuse, denies anxiety, denies depression, denies drug abuse, denies hallucinations. (15:46 LLDO) NOTES: All systems reviewed, negative except as described above. (15:39 LLDO) PAST MEDICAL HISTORY MEDICAL HISTORY: Notes: VERIFIED 04-19-16, , Past medical history includes endocrine disease, hypothyroidism, Past medical history includes history of human immunodeficiency virus, currently under treatment, Past medical history includes history of hypertension, which has been treated, Flu vaccine up to date,ANXIETY, HYPOTHYROIDISM. REVIEWED 07/05/16. (12:37 CJEF) FEMALE SURGICAL HISTORY: VERIFIED 04-19-16, , Surgical history of section,. REVIEWED 07/05/16. (12:37 CJEF) PSYCHIATRIC HISTORY: Psychiatric history includes, anxiety, depression, Notes: VERIFIED 04-19-16, , Psychiatric history includes, anxiety, bipolar disorder, depression. REVIEWED 07/05/16. (12:37 CJEF) SOCIAL HISTORY: Patient denies alcohol use, Patient currently uses drugs, Drug history notes: STATES 'NONE TODAY', Patient currently uses tobacco, smokes cigarettes, daily, Patient drinks socially, twice a month, Patient currently uses drugs, abuses methamphetamines,. (12:37 CJEF) NOTES: Nursing records reviewed, Agree with nursing records, Old chart reviewed, Medication list reviewed. (15:45 LLDO) KNOWN ALLERGIES Abilify: - Swelling to face and arms aripiprazole (Unconfirmed) Haldol tablet: - Locks up her jaw haloperidol (Unconfirmed) naproxen: - SWELLS EYES Toradol: - SWELLS EYES traMADol: - SWELLS EYES CURRENT MEDICATIONS amoxicillin: &a-1R&a+25V*p+0X*j5934X*c152B*c15G*c2P*p-0X&a-25V&a+1RName: Montserrat Krueger : 1980 F35 MedRec: [id number] AcctNum: [id number] Prepared: Saritha Jul 12, 2016 17:58 by Interface Page 2 of 5 pMD [facility] EMERGENCY RECORD CAPSULE : Strength - 500 mg : ORAL Patient Dose: 1 cap(s) Oral 3 times a day. (13:20 CJEF) Truvada: TABLET : Strength - 200 mg-300 mg : ORAL Patient Dose: 1 tab(s) Oral once a day (before a meal). (13:22 CJEF) Isentress: TABLET : Strength - 400 mg : ORAL Patient Dose: 1 tab(s) Oral 2 times a day (before meals). (13:22 CJEF) predniSONE: TABLET : Strength - 20 mg : ORAL Patient Dose: * Oral See Notes.3 TABS PER DAY FOR 3 DAYS, THEN 2 TABS PER DAY FOR 3 DAYS, THEN ONE TAB PER DAY UNTIL GONE. (13:22 CJEF) VITAL SIGNS VITAL SIGNS: BP: 139/97, Pulse: 106, Resp: 20, Pain: 10, O2 sat: 99 on Room Air, Time: 07/12/2016 12:33. (12:33 CJEF) BP: 139/97, Pulse: 109, Resp: 20, Temp: 98.9 (Tympanic), Pain: 10, O2 sat: 97 on Room Air, Time: 07/12/2016 12:40. (12:40 CJEF) BP: 122/85, Pulse: 93, Resp: 18, O2 sat: 96 on Room Air, Time: 07/12/2016 13:52. (13:52 CJEF) BP: 128/75, Pulse: 74, Resp: 18, O2 sat: 98 on Room Air, Time: 07/12/2016 15:47. (15:47 CJEF) BP: 134/75, Pulse: 78, Resp: 18, O2 sat: 98 on Room Air, Time: 07/12/2016 16:08. (16:08 CJEF) BP: 131/65, Pulse: 80, Resp: 18, Temp: 98.4 (Tympanic), Pain: 8, O2 sat: 98 on Room Air, Time: 07/12/2016 16:28. (16:28 CJEF) BP: 123/72, Pulse: 84, Resp: 18, O2 sat: 96 on Room Air, Time: 07/12/2016 16:50. (16:50 JPER) BP: 94/47, Pulse: 81, Resp: 16, O2 sat: 98 on Room Air, Time: 07/12/2016 17:20. (17:20 JPER) PHYSICAL EXAM CONSTITUTIONAL: Vital Signs Reviewed, Patient afebrile, Pulse normal, Blood pressure normal, Respiratory rate normal, Patient appears non toxic, Patient appears, in moderate pain distress, SEVERE WITH PALPATION OR MOVEMENT, Patient alert and oriented to person, place and time, Nursing notes reviewed. (15:42 LLDO) HEAD: Head exam normal, Head exam included findings of head atraumatic, normocephalic. (15:46 LLDO) EYES: Eye exam normal, Eye exam included findings of eyelids normal to inspection, Pupils equally round and reactive to light, Extraocular muscles intact. (15:46 LLDO) ENT: ENT exam normal, Ear exam normal, Nose exam normal. (15:46 LLDO) NECK: Neck exam normal, Neck exam included findings of normal range of motion, Trachea midline, no meningeal signs, no tenderness. (15:46 LLDO) &a-1R&a+25V*p+0X*r3358L*c152B*c15G*c2P*p-0X&a-25V&a+1RName: Montserrat Krueger : 1980 F35 MedRec: [id number] AcctNum: [id number] Prepared: Saritha Jul 12, 2016 17:58 by Interface Page 3 of 5 pMD [facility] EMERGENCY RECORD RESPIRATORY CHEST: Respiratory exam included findings of no respiratory distress, Breath sounds not clear, Rales present, Chest exam included findings of chest movement symmetrical, Chest expansion equal, Tenderness, moderate, to the sternum, Palpation of chest reproduces symptoms. (15:42 LLDO) CARDIOVASCULAR: Cardiovascular assessment normal, Cardiovascular exam included findings of heart rate regular rate and rhythm, Heart sounds normal. (15:46 LLDO) ABDOMEN FEMALE: Abdominal exam included findings of abdomen tender, to the epigastric region, to the right upper quadrant, moderate intensity, Bowel sounds normal, Liver normal, Spleen normal, no distension, no mass, no pulsatile masses, no peritoneal signs. (15:42 LLDO) BACK: Back exam normal, Back exam included findings of normal inspection, range of motion normal. (15:46 LLDO) UPPER EXTREMITY: Upper extremity exam normal, Upper extremity exam included findings of inspection normal, Range of motion normal. (15:46 LLDO) LOWER EXTREMITY: Lower extremity exam normal, Lower extremity exam included findings of inspection normal, Range of motion normal. (15:46 LLDO) NEURO: Neuro exam normal, Neuro exam findings include patient oriented to person, place and time, Speech normal, Olimpia coma scale 15. (15:46 LLDO) SKIN: Skin exam normal, Skin exam included findings of skin warm, dry, and normal in color, no rash. (15:46 LLDO) PSYCHIATRIC: Psychiatric exam normal, Psychiatric exam included findings of patient oriented to person place and time, Normal affect. (15:46 LLDO) MEDICATION ADMINISTRATION SUMMARY Drug Name: Levsin/SL, Dose Ordered: 0.5 mg, Route: Sublingual, Status: Given, Time: 13:53 07/12/2016, Drug Name: Benadryl injection, Dose Ordered: 50 mg, Route: IV Push, Status: Given, Time: 13:53 07/12/2016, Drug Name: Duramorph (PF), Dose Ordered: 4 mg, Route: IV Push, Status: Given, Time: 13:52 07/12/2016, Detailed record available in Medication Service section. DOCTOR NOTES (17:27 LLDO) TEXT: I believe pt is having severe muscle pains under the ribcage d.t. her non-stop cough. perles have failed as has phenergan dm. w/u really hasn't shown any other clear etio. PATIENT PLAN: The patient will be discharged, The patient will follow up with primary care physician. PROBLEM LIST No recorded problems &a-1R&a+25V*p+0X*f7011K*c152B*c15G*c2P*p-0X&a-25V&a+1RName: Montserrat Krueger : 1980 F35 MedRec: [id number] AcctNum: [id number] Prepared: Saritha Jul 12, 2016 17:58 by Interface Page 4 of 5 pMD [facility] EMERGENCY RECORD DIAGNOSIS (17:29 LLDO) FINAL: PRIMARY: OTHER MUSCLE SPASM. PRESCRIPTION (17:29 LLDO) Phenergan-Codeine: SYRUP : : ORAL : Quantity: 1-2 Unit: teaspoon Route: ORAL Schedule: every 4 hours prn Dispense: 120ML May substitute. Refills: No Refills POTENTIAL ALLERGY REACTION: 'traMADol [tramadol/tramadol HCl]' Override Rationale: Reviewed with patient, pt says can safely take this med. NOTES: No Refills. DISPOSITION PATIENT: Disposition Type: Discharge, Disposition: *Discharge Home. (17:29 LLDO) Patient left the department. (17:53 [facility]) Goodman: JOSESITO=TABITHA Han, Mira MOSS=TABITHA [place], Aimee RODRIGES=MD Hakan, Victoriano &a-1R&a+25V*p+0X*b7648I*c152B*c15G*c2P*p-0X&a-25V&a+1RName: Montserrat Krueger : 1980 F35 MedRec: [id number] AcctNum: [id number] Prepared: Saritha Jul 12, 2016 17:58 by Interface Page 5 of 5 pMD MTDD
--- NOTE | 2016-07-12 17:41 | PICIS ---
[facility] EMERGENCY RECORD TRIAGE (12:35 CJEF) TRIAGE NOTES: PT REPORTS THAT SHE WAS GAMBLING JUST PRIOR TO ARRIVAL WHEN SHE STARTED HAVING SOB AND RIGHT SIDE CHEST PAIN. PT REPORTS THAT THE PAIN STARTED ON THE RIGHT SIDE OF CHEST AND RADIATES UNDER THE RIGHT BREAST AND INTO HER BACK. PT REPORTS A COUGH THAT STARTED X1 WEEK AGO. (12:35 CJEF) PATIENT: NAME: Montserrat Krueger, AGE: 35, GENDER: female, : Tue 1980, TIME OF GREET: Sun Jul 12, 2016 12:29, PREFERRED LANGUAGE: Romanian, ETHNICITY: Not or , HIGH ALERT: HIGH ALERT 3, FALL RISK: NO, ECODE BILLING MAP: [facility], SSN: [id number], Zip Code: [address], KG WEIGHT: 72.57, PHONE: , , , PERSON ID: [id number], PCP: MD RIVERA IMELDA. (12:35 CJEF) COMPLAINT: SOB. (12:35 CJEF) ADMISSION: URGENCY: 3 Urgent, ADMISSION SOURCE: Home, TRANSPORT: Walk-in, BED: ED -05. (12:35 CJEF) ASSESSMENT: Assessment: SOB AND RIGHT CHEST PAIN. (12:37 CJEF) PAIN: Patient complains of pain described as, Location RIGHT SIDE CHEST PAIN. (12:37 CJEF) IMMUNIZATIONS: Flu vaccine not up to date, Tetanus not up to date, Pneumococcal vaccine not up to date. (12:37 CJEF) SIRS SCORING: Heart Rate 55-109 (0), Temp range 96.8-101.1 (0), respiratory rate 12-24 (0), Mental Status altered: no (0), Infection or Suspected Infection: No. (12:37 CJEF) TRIAGE SCREENING: Patient denies suicidal ideation, Patient denies presence of domestic violence. (12:37 CJEF) PROVIDERS: TRIAGE NURSE: Mira Han RN. (12:35 CJEF) VITAL SIGNS: BP 139/97, Pulse 106, Resp 20, Pain 10, O2 Sat 99, on Room Air, Time 07/12/2016 12:33. (12:33 CJEF) PREVIOUS VISIT ALLERGIES: Abilify, Haldol tablet, naproxen, Toradol, traMADol. (12:35 CJEF) Abilify, Haldol tablet, naproxen, Toradol, traMADol. (12:37 CJEF) KNOWN ALLERGIES Abilify: - Swelling to face and arms aripiprazole (Unconfirmed) Haldol tablet: - Locks up her jaw haloperidol (Unconfirmed) naproxen: - SWELLS EYES Toradol: - SWELLS EYES traMADol: - SWELLS EYES CURRENT MEDICATIONS amoxicillin: CAPSULE : Strength - 500 mg : ORAL Patient Dose: 1 cap(s) Oral 3 times a day. (13:20 CJEF) Truvada: TABLET : Strength - 200 mg-300 mg : ORAL Patient Dose: 1 tab(s) Oral once a day (before a meal). &a-1R&a+25V*p+0X*y2619V*c152B*c15G*c2P*p-0X&a-25V&a+1RName: PatiMontserrat : 1980 F35 MedRec: [id number] AcctNum: [id number] Prepared: Saritha Jul 12, 2016 18:04 by Interface Page 1 of 14 pMD [facility] EMERGENCY RECORD (13:22 CJEF) Isentress: TABLET : Strength - 400 mg : ORAL Patient Dose: 1 tab(s) Oral 2 times a day (before meals). (13:22 CJEF) predniSONE: TABLET : Strength - 20 mg : ORAL Patient Dose: * Oral See Notes.3 TABS PER DAY FOR 3 DAYS, THEN 2 TABS PER DAY FOR 3 DAYS, THEN ONE TAB PER DAY UNTIL GONE. (13:22 CJEF) VITAL SIGNS VITAL SIGNS: BP: 139/97, Pulse: 106, Resp: 20, Pain: 10, O2 sat: 99 on Room Air, Time: 07/12/2016 12:33. (12:33 CJEF) BP: 139/97, Pulse: 109, Resp: 20, Temp: 98.9 (Tympanic), Pain: 10, O2 sat: 97 on Room Air, Time: 07/12/2016 12:40. (12:40 CJEF) BP: 122/85, Pulse: 93, Resp: 18, O2 sat: 96 on Room Air, Time: 07/12/2016 13:52. (13:52 CJEF) BP: 128/75, Pulse: 74, Resp: 18, O2 sat: 98 on Room Air, Time: 07/12/2016 15:47. (15:47 CJEF) BP: 134/75, Pulse: 78, Resp: 18, O2 sat: 98 on Room Air, Time: 07/12/2016 16:08. (16:08 CJEF) BP: 131/65, Pulse: 80, Resp: 18, Temp: 98.4 (Tympanic), Pain: 8, O2 sat: 98 on Room Air, Time: 07/12/2016 16:28. (16:28 CJEF) BP: 123/72, Pulse: 84, Resp: 18, O2 sat: 96 on Room Air, Time: 07/12/2016 16:50. (16:50 JPER) BP: 94/47, Pulse: 81, Resp: 16, O2 sat: 98 on Room Air, Time: 07/12/2016 17:20. (17:20 JPER) NURSING ASSESSMENT: CARDIOVASCULAR (12:37 CJEF) CONSTITUTIONAL: Complex assessment performed, Patient arrives, via hospital wheelchair, Gait steady, History obtained from patient, Patient appears, anxious, Patient cooperative, Patient alert, Oriented to person, place and time, Skin warm, Skin dry, Skin normal in color, Mucous membranes pink, Mucous membranes moist, Patient is well-groomed, PT REPORTS THAT SHE WAS GAMBLING JUST PRIOR TO ARRIVAL WHEN SHE STARTED HAVING SOB AND RIGHT SIDE CHEST PAIN. PT REPORTS THAT THE PAIN STARTED ON THE RIGHT SIDE OF CHEST AND RADIATES UNDER THE RIGHT BREAST AND INTO HER BACK. PT REPORTS A COUGH THAT STARTED X1 WEEK AGO. PAIN: aching pain, to the right chest, on a scale 0-10 patient rates pain as 10. CARDIOVASCULAR: Cardiovascular assessment findings include heart rate normal, Heart rhythm normal sinus, Heart sounds normal, Notes: PT APPEARS ANXIOUS. RESPIRATORY/CHEST: Breath sounds clear, Respiratory assessment findings include respiratory effort easy, Respirations regular, Conversing normally, Neck and chest exam findings include trachea midline, Chest expansion equal, Chest movement symmetrical, no signs of distress, Associated with cough, non-productive. &a-1R&a+25V*p+0X*h7051X*c152B*c15G*c2P*p-0X&a-25V&a+1RName: Montserrat Krueger : 1980 F35 MedRec: [id number] AcctNum: [id number] Prepared: Saritha Jul 12, 2016 18:04 by Interface Page 2 of 14 pMD [facility] EMERGENCY RECORD NOTES: Patient tolerated procedure well. SAFETY: Side rails up, Cart/Stretcher in lowest position, Family at bedside, Call light within reach, Hospital ID band on. NURSING ASSESSMENT: FALL RISK (12:38 CJEF) FALL RISK: Total score 0, No risk for fall. [place] II FALL RISK: Able to rise in a single movement; no loss of balance with steps(0), Total score 0, Score less than 5. Patient not high risk for falls. NURSING ASSESSMENT: SKIN (12:38 CJEF) SKIN: Skin assessment findings include skin warm, Skin dry, Skin normal in color. FLOR SCALE: (4) Sensory perception has no impairment, (4) Skin is rarely moist, (4) Patient walks frequently, (4) No mobility limitations, (3) Adequate nutrition, (3) Patient has no apparent problem moving, Flor Risk Total: 22. NOTES: Patient tolerated procedure well. SAFETY: Side rails up, Cart/Stretcher in lowest position, Family at bedside, Call light within reach, Hospital ID band on. NURSING PROCEDURE: BEDSIDE RADIOLOGY (12:40 CJEF) PATIENT IDENTIFIER: Patient actively involved in identification process, Patient's identity verified by patient stating name, Patient's identity verified by patient stating date. BEDSIDE RADIOLOGY: Portable chest x-ray performed. NOTES: Patient tolerated procedure well. SAFETY: Side rails up, Cart/Stretcher in lowest position, Family at bedside, Call light within reach, Hospital ID band on. NURSING PROCEDURE: BEDSIDE SIRS TESTING (16:51 CJEF) SCORES: Heart Rate 55-109 (0), Temp range 96.8-101.1 (0), respiratory rate 12-24 (0), Latest WBC 3-14.9 (0), Mental Status altered: no (0), Infection or Suspected Infection: No. NURSING PROCEDURE: KST OPERATOR (12:38 CJEF) PATIENT IDENTIFIER: Patient actively involved in identification process, Patient's identity verified by patient stating name, Patient's identity verified by patient stating date. KST OPERATOR: Cardiac monitoring indicated for SOB, Patient placed on silk screen printer helper, Heart rate: 64, showing normal sinus rhythm, Patient placed on non-invasive blood pressure monitor, with disposable blood pressure cuff applied, Patient placed on continuous pulse oximetry, Adult/pediatric oxisensor applied. FOLLOW-UP: After procedure, alarms set and on, After procedure, patient tolerating monitoring. NOTES: Patient tolerated procedure well. SAFETY: Side rails up, Cart/Stretcher in lowest position, Family at bedside, Call light within reach, Hospital ID band on. NURSING PROCEDURE: DISCHARGE NOTE (17:52 CJEF) &a-1R&a+25V*p+0X*d7134R*c152B*c15G*c2P*p-0X&a-25V&a+1RName: Montserrat Krueger : 1980 F35 MedRec: [id number] AcctNum: [id number] Prepared: Saritha Jul 12, 2016 18:04 by Interface Page 3 of 14 D [facility] EMERGENCY RECORD DISCHARGE: Patient discharged to home, ambulating without assistance, patient walking, unaccompanied, Summary of Care printed/ provided, Patient requested and was provided an electronic copy of Discharge Instructions, Transition record given to patient, Discharge instructions given to patient, Simple or moderate discharge teaching performed, Prescriptions given and instructions on side effects given, Medication reconciliation form given, Above person(s) verbalized understanding of discharge instructions and follow-up care, Patient treated and evaluated by physician. BELONGINGS: Belongings remain with patient. NOTES: Patient tolerated procedure well. SAFETY: Side rails up, Cart/Stretcher in lowest position, Family at bedside, Call light within reach, Hospital ID band on. NURSING PROCEDURE: IV PATIENT IDENITIFIER: Patient actively involved in identification process, Patient's identity verified by patient stating name, Patient's identity verified by patient stating date. (13:35 CJEF) Patient's identity verified by patient stating name, Patient's identity verified by hospital ID bracelet. (17:33 JPER) IV SITE 1: IV therapy indicated for hydration, IV therapy indicated for medication administration, IV established, to the right antecubital, using a 20 gauge catheter, in two attempts, IV site prepped with CHLORAPREP, Saline lock established, Flushed with normal saline (mls): 10, Labs drawn at time of placement, labeled in the presence of the patient and sent to lab. (13:35 CJEF) FOLLOW-UP SITE 1: After procedure, sterile transparent dressing applied. (13:35 CJEF) After procedure, no drainage at IV site, After procedure, no swelling at IV site, After procedure, no redness at IV site, IV discontinued, due to patient being discharged, catheter intact. (17:33 JPER) NOTES: Patient tolerated procedure well. (13:35 CJEF) Emotional support needed and given. (17:33 JPER) SAFETY: Side rails up, Cart/Stretcher in lowest position, Family at bedside, Call light within reach, Hospital ID band on. (13:35 CJEF) NURSING PROCEDURE: LAB DRAW (14:45 CJEF) PATIENT IDENTIFIER: Patient actively involved in identification process, Patient's identity verified by patient stating name, Patient's identity verified by patient stating date. LAB DRAW: Lab draw indicated for inability to obtain labs from IV site, Lab draw indicated for obtaining specimens for evaluation, Initial lab draw performed, Notes: AIMEE RN AT BEDSIDE TO DRAW BLOOD FOR TESTING,. NOTES: Patient tolerated procedure well. SAFETY: Side rails up, Cart/Stretcher in lowest position, Family at bedside, Call light within reach, Hospital ID band on. NURSING PROCEDURE: NURSE NOTES &a-1R&a+25V*p+0X*e6850F*c152B*c15G*c2P*p-0X&a-25V&a+1RName: Montserrat Krueger : 1980 F35 MedRec: [id number] AcctNum: [id number] Prepared: Saritha Jul 12, 2016 18:04 by Interface Page 4 of 14 pMD [facility] EMERGENCY RECORD NURSES NOTES: Patient in no apparent distress, Patient resting quietly, Notes: PT RESTING IN BED QUIETLY WITH FRIEND AT BEDSIDE. NO DISTRESS NOTED. (12:58 CJEF) Patient assisted to bathroom with steady gait, Patient in no apparent distress, Patient resting quietly. (13:22 CJEF) Patient in no apparent distress, Patient resting quietly, Notes: PT RESTING IN BED QUIETLY WITH FRIEND AT BEDSIDE. NO DISTRESS NOTED. (13:51 CJEF) Patient in no apparent distress, Patient resting quietly, Notes: PT RESTING IN BED WATCHING TV. NO DISTRESS NOTED. PT REFUSING TO ALLOW LAB TO DRAW BLOOD FOR TESTING. PT STATING THAT SHE WILL ONLY LET ONE OF THE NURSES DRAW THE BLOOD. (14:25 CJEF) Patient in no apparent distress, Patient resting quietly, Notes: PT RESTING IN BED QUIETLY WITH NO DISTRESS NOTED. PT DENIES ANY NEEDS. (16:19 CJEF) Patient in no apparent distress, Patient resting quietly, Notes: PT RESTING IN BED WATCHING TV. NO DISTRESS NOTED. (16:34 CJEF) Notes: PT SLEEPING ROUSING EASILY TO STIMULI. (17:20 JPER) NURSING PROCEDURE: TRANSPORT TO TESTS PATIENT IDENTIFIER: Patient actively involved in identification process, Patient's identity verified by patient stating name, Patient's identity verified by patient stating date. (15:01 CJEF) TRANSPORT TO TESTS: Transport indicated to facilitate diagnosis, Patient transported to CT scan, via wheelchair. (15:01 CJEF) FOLLOW-UP: After procedure, patient returned to emergency department. (15:17 CJEF) NOTES: Patient tolerated procedure well. (15:01 CJEF) SAFETY: Side rails up, Cart/Stretcher in lowest position, Family at bedside, Call light within reach, Hospital ID band on. (15:01 CJEF) NURSING PROCEDURE: URINE COLLECTION (13:25 CJEF) PATIENT IDENTIFIER: Patient actively involved in identification process, Patient's identity verified by patient stating name, Patient's identity verified by patient stating date. URINE COLLECTION FEMALE: Urine collected by mid-stream clean catch, urine yellow in color. NOTES: Patient tolerated procedure well. SAFETY: Side rails up, Cart/Stretcher in lowest position, Family at bedside, Call light within reach, Hospital ID band on. ORDER DETAILS Order Name: Amylase, Status: Active, Time: 13:06 07/12/2016, User: ZAHIRA, - Ordered for: MD Mcclendon Lloyd, - Entered by: MD Mcclendon Lloyd - Saritha Jul 12, 2016 13:06, - Quantity: 1, Order Name: CBC with Differential, Status: Active, Time: 13:06 &a-1R&a+25V*p+0X*c2571G*c152B*c15G*c2P*p-0X&a-25V&a+1RName: Montserrat Krueger : 1980 F35 MedRec: [id number] AcctNum: [id number] Prepared: Saritha Jul 12, 2016 18:04 by Interface Page 5 of 14 pMD [facility] EMERGENCY RECORD 07/12/2016, User: ZAHIRA, - Ordered for: MD Mcclendon Lloyd, - Entered by: MD Mcclendon Lloyd - Saritha Jul 12, 2016 13:06, - Quantity: 1, Order Name: Comprehensive Metabolic Panel, Status: Active, Time: 13:06 07/12/2016, User: ZAHIRA, - Ordered for: MD Mcclendon Lloyd, - Entered by: MD Mcclendon Lloyd - Sun Jul 12, 2016 13:06, - Quantity: 1, Order Name: CT Abdomen Pelvis W Con, Status: Active, Time: 13:06 07/12/2016, User: ZAHIRA, - Ordered for: MD Mcclendon Lloyd, - Entered by: MD Mcclendon Lloyd - Sun Jul 12, 2016 13:06, - Quantity: 1, Order Name: Culture, Urine, Status: Active, Time: 13:06 07/12/2016, User: ZAHIRA, - Ordered for: MD Mcclendon Lloyd, - Entered by: MD Mcclendon Lloyd - Saritha Jul 12, 2016 13:06, - Quantity: 1, Order Name: Lipase, Status: Active, Time: 13:06 07/12/2016, User: ZAHIRA, - Ordered for: MD Mcclendon Lloyd, - Entered by: MD Mcclendon Lloyd - Sun Jul 12, 2016 13:06, - Quantity: 1, Order Name: SALINE LOCK, Status: Done, Time: 13:47 07/12/2016, User: CJEF, - Ordered for: MD Mcclendon Lloyd, - Entered by: MD Mcclendon Lloyd - Sun Jul 12, 2016 13:06, - Quantity: 1, Order Name: Urinalysis w/ Rflx Microscopic, Status: Active, Time: 13:06 07/12/2016, User: ZAHIRA, - Ordered for: MD Mcclendon Lloyd, - Entered by: MD Mcclendon Lloyd - Saritha Jul 12, 2016 13:06, - Quantity: 1, Order Name: XR Chest Pa & Lat STANDARD, Status: Canceled, Time: 18:04 07/12/2016, User: System, - Ordered for: MD Mcclendon Lloyd, - Entered by: MD Mcclendon Lloyd - Saritha Jul 12, 2016 13:06, - Quantity: 1. MEDICATION ADMINISTRATION SUMMARY Drug Name: Levsin/SL, Dose Ordered: 0.5 mg, Route: Sublingual, Status: Given, Time: 13:53 07/12/2016, Drug Name: Benadryl injection, Dose Ordered: 50 mg, Route: IV Push, Status: Given, Time: 13:53 07/12/2016, Drug Name: Duramorph (PF), Dose Ordered: 4 mg, Route: IV Push, Status: Given, Time: 13:52 07/12/2016, Detailed record available in Medication Service section. MEDICATION SERVICE &a-1R&a+25V*p+0X*o6749P*c152B*c15G*c2P*p-0X&a-25V&a+1RName: Montserrat Krueger : 1980 F35 MedRec: [id number] AcctNum: [id number] Prepared: Saritha Jul 12, 2016 18:04 by Interface Page 6 of 14 pMD [facility] EMERGENCY RECORD Benadryl injection: Order: Benadryl injection (diphenhydramine HCl) - Dose: 50 mg : IV Push Schedule: Now Ordered by: Victoriano Mcclendon MD Entered by: MD Saritha Jimenez Jul 12, 2016 13:09 Documented as given by: TABITHA Zhang Jul 12, 2016 13:53 Patient, Medication, Dose, Route and Time verified prior to administration. Amount given: 50MG, IV SITE #1 IVP, subsequent different medication, Slowly, Awake and alert- acceptable, Connections checked prior to administration, Line traced prior to administration, Catheter placement confirmed via flush prior to administration, IV site without signs or symptoms of infiltration during medication administration, No swelling during administration, No drainage during administration, IV flushed after administration, Correct patient, time, route, dose and medication confirmed prior to administration, Patient advised of actions and side-effects prior to administration, Allergies confirmed and medications reviewed prior to administration, Patient tolerated procedure well, Patient in position of comfort, Side rails up, Cart in lowest position, Family at bedside. : Follow Up : Response assessment performed, No signs or symptoms of allergic reaction noted, Advised not to ambulate without assistance, Patient in position of comfort, Side rails up, Cart in lowest position, Family at bedside. (16:28 [facility]) Duramorph (PF): Order: Duramorph (PF) (morphine sulfate/preservative free) - Dose: 4 mg : IV Push POTENTIAL ALLERGY REACTION: 'traMADol [tramadol/tramadol HCl]' - Reviewed with patient, pt says can safely take this med Schedule: Now Ordered by: Victoriano Mcclendon MD Entered by: Victoriano Mcclendon MD [place] Jul 12, 2016 13:07 Documented as given by: Mira Han RN [place] Jul 12, 2016 13:52 Patient, Medication, Dose, Route and Time verified prior to administration. Amount given: 4MG, IV SITE #1 IVP, initial medication, Slowly, Awake and alert- acceptable, Connections checked prior to administration, Line traced prior to administration, Catheter placement confirmed via flush prior to administration, IV site without signs or symptoms of infiltration during medication administration, No swelling during administration, No drainage during administration, IV flushed after administration, Correct patient, time, route, dose and medication confirmed prior to administration, Patient advised of actions and side-effects prior to administration, Allergies confirmed and medications reviewed prior to administration, Patient tolerated procedure well, Patient in position of comfort, Side rails up, Cart in lowest position, Family at bedside. : Follow Up : Response assessment performed, No signs or symptoms of allergic reaction noted, Advised not to ambulate without assistance, Patient in position of comfort, Side rails up, Cart in lowest position, Family at bedside. (16:28 [facility]) Levsin/SL: Order: Levsin/SL (hyoscyamine sulfate) - &a-1R&a+25V*p+0X*g4802Q*c152B*c15G*c2P*p-0X&a-25V&a+1RName: Montserrat Krueger : 1980 F35 MedRec: [id number] AcctNum: [id number] Prepared: Saritha Jul 12, 2016 18:04 by Interface Page 7 of 14 pMD [facility] EMERGENCY RECORD Dose: 0.5 mg : Sublingual Schedule: Now Ordered by: Victoriano Mcclendon MD Entered by: MD Saritha Jimenez Jul 12, 2016 13:10 Documented as given by: TABITHA Zhang Jul 12, 2016 13:53 Patient, Medication, Dose, Route and Time verified prior to administration. Amount given: 0.5MG, Site: Medication administered P.O., Mouth check performed after administration of medication, Patient appears Awake and alert- acceptable, Correct patient, time, route, dose and medication confirmed prior to administration, Patient advised of actions and side-effects prior to administration, Allergies confirmed and medications reviewed prior to administration, Patient tolerated procedure well, Patient in position of comfort, Side rails up, Cart in lowest position, Family at bedside. : Follow Up : Response assessment performed, No signs or symptoms of allergic reaction noted, Advised not to ambulate without assistance, Patient in position of comfort, Side rails up, Cart in lowest position, Family at bedside. (16:28 CJEF) HPI ABDOMINAL PAIN (14:50 LLDO) CHIEF COMPLAINTS: Patient presents for evaluation of abdominal pain, Denies abdominal distention, Denies bloating, Patient presents for evaluation of see triage note. pt was in last week with apparent bronchitis. pt says she was doing better until sudden onset of pain and sob today. the pain, thoughis mostly epigastric with radiation under her right breast and into the right flank. also rad into sub-sternal area. all these areas very tender to palpation. pt says it now feels very much like the colitis she had last march. HISTORIAN: History provided by patient, History provided by patient's family. LOCATION FEMALE: Symptoms are localized. QUALITY: Pain is dull in nature, described as aching. SEVERITY: Maximum severity of symptoms severe, Currently symptoms are severe, pt does not seem to be in extreme pain. TIME COURSE: Sudden onset of symptoms, Symptoms are intermittent, There has been no change in the patient's symptoms over time. ASSOCIATED WITH FEMALE: No associated symptoms, Associated with loss of appetite. RELIEVED BY: Patient's condition relieved by time. EXACERBATED BY: Patient's condition exacerbated by cough, Patient's condition exacerbated by deep breath, Patient's condition exacerbated by movement, Patient's condition exacerbated by PALPATION. RISK FACTORS FEMALE: No ectopic risk factors present, No abdominal aortic aneurysm risk factors, No coronary artery disease risk factors. ROS CONSTITUTIONAL: Historian reports fatigue. (15:39 LLDO) EYES: Negative eye review of systems, Historian denies eye pain, &a-1R&a+25V*p+0X*d7258D*c152B*c15G*c2P*p-0X&a-25V&a+1RName: Montserrat Krueger : 1980 F35 MedRec: [id number] AcctNum: [id number] Prepared: Saritha Jul 12, 2016 18:04 by Interface Page 8 of 14 pMD [facility] EMERGENCY RECORD denies eye redness, denies eye discharge. (15:46 LLDO) ENT: Negative ears, nose, throat review of systems, Historian denies epistaxis, denies rhinorrhea, denies sinus pain, denies sore throat. (15:46 LLDO) CARDIOVASCULAR: Historian reports chest pain, pleuritic, substernal, Historian reports dyspnea on exertion. (15:39 LLDO) RESPIRATORY: Historian reports cough, reports sputum. described as thick, yellow, Historian denies stridor, denies wheezing. (15:39 LLDO) GI: Historian reports abdominal pain, reports anorexia, reports appetite changes, denies constipation, denies diarrhea, denies hematochezia, denies jaundice, denies melena, denies nausea, denies stool changes, denies vomiting. (15:39 LLDO) GENITOURINARY FEMALE: Negative genitourinary review of systems, Historian denies dysuria, denies frequency, denies urgency. (15:46 LLDO) MUSCULOSKELETAL: Negative musculoskeletal review of systems, Historian denies arthralgias, denies back pain, denies injury, denies myalgias, denies neck pain. (15:46 LLDO) SKIN: Negative skin review of systems, Historian denies cellulitis, denies rash, denies skin changes, denies skin lesions. (15:46 LLDO) NEUROLOGIC: Negative neurologic review of systems, Historian denies confusion, denies dizziness, denies focal weakness, denies mental status changes. (15:46 LLDO) HEMO/LYMPHATIC: Normal hematologic/lymphatic system review, Historian denies abnormal blood clotting, denies gum bleeding, denies petechiae. (15:46 LLDO) ALLERGIC/IMMUNOLOGIC: Normal allergy/immunologic system review, Historian denies eczema, denies environmental allergies, denies food allergies. (15:46 LLDO) PSYCHIATRIC: Negative psychiatric review of systems, Historian denies alcohol abuse, denies anxiety, denies depression, denies drug abuse, denies hallucinations. (15:46 LLDO) NOTES: All systems reviewed, negative except as described above. (15:39 LLDO) PAST MEDICAL HISTORY MEDICAL HISTORY: Notes: VERIFIED 04-19-16, , Past medical history includes endocrine disease, hypothyroidism, Past medical history includes history of human immunodeficiency virus, currently under treatment, Past medical history includes history of hypertension, which has been treated, Flu vaccine up to date,ANXIETY, HYPOTHYROIDISM. REVIEWED 07/05/16. (12:37 CJEF) FEMALE SURGICAL HISTORY: VERIFIED 04-19-16, , Surgical history of section,. REVIEWED 07/05/16. (12:37 CJEF) PSYCHIATRIC HISTORY: Psychiatric history includes, anxiety, depression, Notes: VERIFIED 04-19-16, , Psychiatric history includes, anxiety, bipolar disorder, depression. REVIEWED 07/05/16. (12:37 &a-1R&a+25V*p+0X*d1358W*c152B*c15G*c2P*p-0X&a-25V&a+1RName: Montserrat Krueger : 1980 F35 MedRec: [id number] AcctNum: [id number] Prepared: Saritha Jul 12, 2016 18:04 by Interface Page 9 of 14 pMD [facility] EMERGENCY RECORD CJEF) SOCIAL HISTORY: Patient denies alcohol use, Patient currently uses drugs, Drug history notes: STATES 'NONE TODAY', Patient currently uses tobacco, smokes cigarettes, daily, Patient drinks socially, twice a month, Patient currently uses drugs, abuses methamphetamines,. (12:37 CJEF) NOTES: Nursing records reviewed, Agree with nursing records, Old chart reviewed, Medication list reviewed. (15:45 LLDO) PHYSICAL EXAM CONSTITUTIONAL: Vital Signs Reviewed, Patient afebrile, Pulse normal, Blood pressure normal, Respiratory rate normal, Patient appears non toxic, Patient appears, in moderate pain distress, SEVERE WITH PALPATION OR MOVEMENT, Patient alert and oriented to person, place and time, Nursing notes reviewed. (15:42 LLDO) HEAD: Head exam normal, Head exam included findings of head atraumatic, normocephalic. (15:46 LLDO) EYES: Eye exam normal, Eye exam included findings of eyelids normal to inspection, Pupils equally round and reactive to light, Extraocular muscles intact. (15:46 LLDO) ENT: ENT exam normal, Ear exam normal, Nose exam normal. (15:46 LLDO) NECK: Neck exam normal, Neck exam included findings of normal range of motion, Trachea midline, no meningeal signs, no tenderness. (15:46 LLDO) RESPIRATORY CHEST: Respiratory exam included findings of no respiratory distress, Breath sounds not clear, Rales present, Chest exam included findings of chest movement symmetrical, Chest expansion equal, Tenderness, moderate, to the sternum, Palpation of chest reproduces symptoms. (15:42 LLDO) CARDIOVASCULAR: Cardiovascular assessment normal, Cardiovascular exam included findings of heart rate regular rate and rhythm, Heart sounds normal. (15:46 LLDO) ABDOMEN FEMALE: Abdominal exam included findings of abdomen tender, to the epigastric region, to the right upper quadrant, moderate intensity, Bowel sounds normal, Liver normal, Spleen normal, no distension, no mass, no pulsatile masses, no peritoneal signs. (15:42 LLDO) BACK: Back exam normal, Back exam included findings of normal inspection, range of motion normal. (15:46 LLDO) UPPER EXTREMITY: Upper extremity exam normal, Upper extremity exam included findings of inspection normal, Range of motion normal. (15:46 LLDO) LOWER EXTREMITY: Lower extremity exam normal, Lower extremity exam included findings of inspection normal, Range of motion normal. (15:46 LLDO) NEURO: Neuro exam normal, Neuro exam findings include patient oriented to person, place and time, Speech normal, Goldsmith coma scale 15. (15:46 LLDO) &a-1R&a+25V*p+0X*e9377W*c152B*c15G*c2P*p-0X&a-25V&a+1RName: Montserrat Krueger : 1980 F35 MedRec: [id number] AcctNum: [id number] Prepared: Saritha Jul 12, 2016 18:04 by Interface Page 10 of 14 pMD [facility] EMERGENCY RECORD SKIN: Skin exam normal, Skin exam included findings of skin warm, dry, and normal in color, no rash. (15:46 LLDO) PSYCHIATRIC: Psychiatric exam normal, Psychiatric exam included findings of patient oriented to person place and time, Normal affect. (15:46 LLDO) EVENTS TRANSFER: Triage to Emergency Main ED -05. (Saritha Jul 12, 2016 12:35 CJEF) Removed from Emergency Main ED -05. (17:53 CJEF) DOCTOR NOTES (17:27 LLDO) TEXT: I believe pt is having severe muscle pains under the ribcage d.t. her non-stop cough. perles have failed as has phenergan dm. w/u really hasn't shown any other clear etio. PATIENT PLAN: The patient will be discharged, The patient will follow up with primary care physician. PROBLEM LIST No recorded problems DIAGNOSIS (17:29 LLDO) FINAL: PRIMARY: OTHER MUSCLE SPASM. DISPOSITION PATIENT: Disposition Type: Discharge, Disposition: *Discharge Home. (17:29 LLDO) Patient left the department. (17:53 CJEF) INSTRUCTION (17:30 LLDO) DISCHARGE: MUSCLE SPASM. FOLLOWUP: MD MIGUEL, [facility], [facility], [address] [place] [id number], [phone], Follow up with Primary Care Physician in 7-10 days. SPECIAL: Follow-up with your PCP. PRESCRIPTION (17:29 LLDO) Phenergan-Codeine: SYRUP : : ORAL : Quantity: 1-2 Unit: teaspoon Route: ORAL Schedule: every 4 hours prn Dispense: 120ML May substitute. Refills: No Refills POTENTIAL ALLERGY REACTION: 'traMADol [tramadol/tramadol HCl]' Override Rationale: Reviewed with patient, pt says can safely take this med. NOTES: No Refills. IMAGING (17:52 CJEF) *DISCHARGE INSTRUCTIONS RECEIPT: Image captured from scanner. *SUPPLY CHARGE SHEET: Image captured from scanner. ADMIN (17:30 LLDO) &a-1R&a+25V*p+0X*r6872F*c152B*c15G*c2P*p-0X&a-25V&a+1RName: Montserrat Krueger : 1980 5 MedRec: [id number] AcctNum: [id number] Prepared: [place] Jul 12, 2016 18:04 by Interface Page 11 of 14 pMD [facility] EMERGENCY RECORD DIGITAL SIGNATURE: MD Mcclendon Lloyd. RESULTS RADIOLOGY: XR Chest Pa & Lat STANDARD Observe DT: [place] Jul 12, 2016 12:37, CXR2 2 VIEW CHEST: Date: 07/12/16 HISTORY: Shortness of breath. COMPARISON: 08/31/14. FINDINGS: Lung ramsey are clear. No evidence of infiltrate. Heart and mediastinum appear normal. IMPRESSION: Unremarkable chest exam. POS: [facility] . (15:01 [facility]) CT Abdomen Pelvis W Con Observe DT: [place] Jul 12, 2016 13:09, ABDPELV CONTRAST ENHANCED CT IMAGES OF ABDOMEN AND PELVIS: Date: 07/12/16 HISTORY: Right upper quadrant pain. FINDINGS: Contrast enhanced CT images of the abdomen and pelvis are obtained. The lung bases are unremarkable. No evidence of free intraperitoneal air seen. The liver, spleen, gallbladder, pancreas, adrenal glands, and kidneys are unremarkable. No evidence of free intraperitoneal air seen. A normal appendix is seen. A large amount of stool is seen in the colon. No dilated loops of bowel seen. Osseous structures int act. IMPRESSION: &a-1R&a+25V*p+0X*w0707M*c152B*c15G*c2P*p-0X&a-25V&a+1RName: Montserrat Krueger : 1980 5 MedRec: [id number] AcctNum: [id number] Prepared: [place] Jul 12, 2016 18:04 by Interface Page 12 of 14 pMD [facility] EMERGENCY RECORD Unremarkable contrast enhanced CT images of abdomen and pelvis. POS: [facility] . (16:08 [facility]) LABORATORY: Urine Microscopic ONLY Collection DT: [place] Jul 12, 2016 14:54, See comment below , Comment w/ micro, please , RBC/HPF 0-3 HPF, Range (0-3), *WBC/HPF 4-6 - H HPF, Range (0-3), *Squamous Epithelial 21-50 - H HPF, Range (0-3), Transitional Epithelial 0-3 HPF, Range (0-3), Renal Epithelial 0-3 HPF, Range (0-3), Bacteria/HPF Rare-Few HPF, Range (None Seen). (15:01 CJ) Urinalysis w/ Rflx Microscopic Collection DT: [place] Jul 12, 2016 14:54, See comment below , Comment w/ micro, please , Color Yellow , Range (Yellow), Clarity Clear , Range (Clear), Specific [place], Urine 1.025 , Range (1.005-1.030), pH, Urine 6.0 , Range (5.0-9.0), Leukocyte Negative , Range (Negative), Nitrite Negative , Range (Negative), Protein, Urine (Dipstick) Negative mg/dL, Range (Neg-Trace), Glucose, Urine (Dipstick) Negative mg/dL, Range (Negative), Ketone, Urine Negative mg/dL, Range (Negative), Urobilinogen 0.2 mg/dL, Range (0.2-1.0), Bilirubin Negative , Range (Negative), Blood, Urine Negative , Range (Negative). (15:01 CJ) Lipase Collection DT: [place] Jul 12, 2016 15:27, Lipase 23 U/L, Range (8-78). (15:47 CJEF) Amylase Collection DT: [place] Jul 12, 2016 15:27, Amylase 68 U/L, Range (25-125). (15:47 CJ) Comprehensive Metabolic Panel Collection DT: [place] Jul 12, 2016 15:27, Sodium 141 mmol/L, Range (136-145), Potassium 5.0 mmol/L, Range (3.5-5.1), Chloride 102 mmol/L, Range (98-107), Carbon Dioxide 22 mmol/L, Range (22-29), *Anion Gap 22 - H mmol/L, Range (10-20), *BUN (Urea Nitrogen) 20 - H mg/dL, Range (7.0-18.7), Creatinine 0.94 mg/dL, Range (0.6-1.1), Estimated GFR-MDRD 82 , Reference Range for Estimated GFR: Greater than 90, mL/min/1.73 m2 NOTE: The MDRD equation has not been validated for use, with the elderly (over 70 years of age), women, patients with, serious comorbid condition or persons with extremes of body size, muscle, mass, or nutritional status. , Glucose 101 mg/dL, Range (70-105), Calcium 8.8 mg/dL, Range (7.8-10.44), Bilirubin, Total 0.7 mg/dL, Range (0.2-1.2), Protein, Total 7.0 g/dL, Range (6.0-8.3), NOTE: Plasma values are &a-1R&a+25V*p+0X*o0195Z*c152B*c15G*c2P*p-0X&a-25V&a+1RName: Montserrat Krueger : 1980 F35 MedRec: [id number] AcctNum: [id number] Prepared: Saritha Jul 12, 2016 18:04 by Interface Page 13 of 14 pMD [facility] EMERGENCY RECORD generally 0.3 to 0.5 g/dL higher than serum values, due to the presence of fibrinogen. , Albumin 3.6 g/dL, Range (3.5-5.0), Globulin 3.4 g/dL, Range (2.4-3.5), *Alb/Glob Ratio 1.1 - L g/dL, Range (1.2-2.2), Alkaline Phosphatase 74 U/L, Range (40-150), AST (SGOT) 31 U/L, Range (5-34), ALT (SGPT) 14 U/L, Range (0-55). (15:47 [facility]) CBC with Differential Collection DT: Saritha Jul 12, 2016 15:29, White Blood Cell (WBC) Count 7.8 thou/uL, Range (4.8-10.8), *Red Blood Cell (RBC) Count 3.98 - L mill/uL, Range (4.20-5.40), Hemoglobin 13.5 g/dL, Range (12.0-16.0), Hematocrit 39.1 %, Range (36.0-47.0), Mean Corpuscular Volume 98.2 fL, Range (81.0-99.0), *Mean Corpuscular Hemoglobin 33.8 - H pg, Range (27.0-31.0), Mean Corpuscular HGB CONC 34.4 g/dL, Range (32.0-36.0), RBC Distribution Width 12.7 %, Range (11.5-14.5), Platelet Count 256 thou/uL, Range (130-400), *Mean Platelet Volume 5.7 - L fL, Range (7.4-10.4), *Neutrophil 31 - L %, Range (42-75), *Lymphocytes 65 - H %, Range (21-51), Monocytes 3 %, Range (0-10), Eosinophils 1 %, Range (0-10). (15:47 CJ) Goodman: JOSESITO=TABITHA Han, Mira MOSS=TABITHA [place], Aimee RODRIGES=MD Hakan, Victoriano &a-1R&a+25V*p+0X*p6782H*c152B*c15G*c2P*p-0X&a-25V&a+1RName: Pati Montserrat : 1980 F35 MedRec: [id number] AcctNum: [id number] Prepared: Saritha Jul 12, 2016 18:04 by Interface Page 14 of 14 pMD [facility] MEDICATION RECONCILIATION You were seen in the Emergency Department on: Saritha Jul 12, 2016 KNOWN ALLERGIES Abilify: - Swelling to face and arms aripiprazole (Unconfirmed) Haldol tablet: - Locks up her jaw haloperidol (Unconfirmed) naproxen: - SWELLS EYES Toradol: - SWELLS EYES traMADol: - SWELLS EYES MEDICATIONS GIVEN WHILE IN THE EMERGENCY DEPARTMENT Duramorph (PF) (morphine sulfate/preservative free) - Dose: 4 milligram(s) : IV Push Benadryl injection (diphenhydramine HCl) - Dose: 50 milligram(s) : IV Push Levsin/SL (hyoscyamine sulfate) - Dose: 0.5 milligram(s) : Sublingual HOME MEDICATIONS CONTINUE PRESCRIBED amoxicillin : CAPSULE : Strength - 500 mg : ORAL Continue as prescribed Patient had been takin cap(s) Oral 3 times a day. Isentress : TABLET : Strength - 400 mg : ORAL Continue as prescribed Patient had been takin tab(s) Oral 2 times a day (before meals). predniSONE : TABLET : Strength - 20 mg : ORAL Continue as prescribed Patient had been taking: * Oral See Notes. Comment: 3 TABS PER DAY FOR 3 DAYS, THEN 2 TABS PER DAY FOR 3 DAYS, THEN ONE TAB PER DAY UNTIL GONE. Truvada : TABLET : Strength - 200 mg-300 mg : ORAL Continue as prescribed Patient had been takin tab(s) Oral once a day (before a meal). Notes from the emergency department Reviewed with patient PRESCRIPTIONS (1) &a-1R&a+25V*p+0X*b9682A*c202B*c15G*c2P*p-0X&a-25V&a+1R Name: Montserrat Krueger : 1980 F35 MedRec: [id number] AcctNum: [id number] Prepared: Saritha Jul 12, 2016 18:04 by Interface pMD [facility] MEDICATION RECONCILIATION &a-1R&a+25V*p+0X*d8846L*c202B*c15G*c2P*p-0X&a-25V&a+1R Name: Montserrat Krueger : 1980 F35 MedRec: [id number] AcctNum: [id number] Prepared: Saritha Jul 12, 2016 18:04 by Interface [facility]
== END 2016-07-12 17:55 | disposition home or self-care (01) ==
LOC: MADERS 12:29
DX: M62.838 Other muscle spasm (principal); Z21 Asymptomatic human immunodeficiency virus [HIV] infection status; I10 Essential (primary) hypertension; E03.9 Hypothyroidism, unspecified; F41.9 Anxiety disorder, unspecified; F31.9 Bipolar disorder, unspecified; F17.210 Nicotine dependence, cigarettes, uncomplicated
CPT/HCPCS: 71020; 74177; 80053; 81003; 81015; 82150; 83690; 85025; 87086; 96374; 96375; J1200; J2270

== ENCOUNTER 2016-09-03 16:25 | Emergency (ER) | payer SELFPAY ==
[2016-09-03] MEDS ORDERED: Cephalexin 500 MG CAP ONE (16:53)
[2016-09-03] MEDS ORDERED: Adacel (T-DAP) 0.5 ML VIAL ONE (16:53)
== END 2016-09-03 17:11 | disposition home or self-care (01) ==
LOC: MADERS 16:25
DX: S91.111A Laceration without foreign body of right great toe without damage to nail, initial encounter (principal); E03.9 Hypothyroidism, unspecified; I10 Essential (primary) hypertension; F31.9 Bipolar disorder, unspecified; F41.9 Anxiety disorder, unspecified; F17.210 Nicotine dependence, cigarettes, uncomplicated; Z79.899 Other long term (current) drug therapy; Z21 Asymptomatic human immunodeficiency virus [HIV] infection status; W45.8XXA Other foreign body or object entering through skin, initial encounter
CPT/HCPCS: 90471; 90715

== ENCOUNTER 2016-09-10 11:11 | Emergency (ER) | payer MEDICAID, SELFPAY ==
[~2016-09-10 11:11] MED LIST changes: +Sodium Chloride 0.9% 1,000 ML BAG ONE; -Sodium Chloride 0.9% 100 ML BAG ONE
[2016-09-10] MEDS ORDERED: cloNIDine HCl 0.1 MG TAB ONE (11:47)
[2016-09-10] MEDS ORDERED: Lorazepam 1 MG TAB ONE (11:56)
[2016-09-10 12:14] LABS: Bilirubin Negative (Negative); Blood, Urine Negative (Negative); Clarity Clear (Clear); Glucose, Urine (Dipstick) Negative (Negative); Leukocyte Trace (Negative); Nitrite Negative (Negative); Protein, Urine (Dipstick) Negative (Neg-Trace); Urobilinogen 0.2 mg/dL (0.2-1.0); pH, Urine 5.5 (5.0-9.0)
[2016-09-10] MEDS ORDERED: Ondansetron HCl/PF 4 MG/2 ML Vial ONE (12:34)
[2016-09-10 12:36] LABS: Bacteria/HPF 1+ HPF (None Seen); RBC/HPF 0-3 HPF (0-3)
[2016-09-10 13:15] LABS: #Basophils 0.1 thou/uL (0.0-0.2); #Lymphocytes 3.4 thou/uL (1.20-3.40); #Monocytes 0.5 thou/uL (0.11-0.59); #Neutrophils 3.8 thou/uL (1.40-6.50); %Basophils 1.2 % (0.0-1.0); %Eosinophils 0.6 % (0.0-10.0); %Lymphocytes 43.4 % (21.0-51.0); %Monocytes 6.8 % (0.0-10.0); Hemoglobin 12.5 g/dL (12.0-16.0); Mean Corpuscular HGB CONC 33.4 g/dL (32.0-36.0); Mean Corpuscular Hemoglobin 32.7 pg (27.0-31.0); Mean Platelet Volume 8.5 fL (7.4-10.4); Platelet Count 307 thou/uL (130-400); RBC Distribution Width 12.4 % (11.5-14.5); White Blood Cell (WBC) Count 7.9 thou/uL (4.8-10.8)
[2016-09-10 13:42] LABS: CRP (Inflammatory) Less than 0.50 mg/dL (= or < 0.5)
[2016-09-10 13:50] LABS: ALT (SGPT) 17 U/L (0-55); AST (SGOT) 26 U/L (5-34); Albumin 3.5 g/dL (3.5-5.0); Alkaline Phosphatase 61 U/L (40-150); Anion Gap 16 mmol/L (10-20); BUN (Urea Nitrogen) 7 mg/dL (7.0-18.7); Bilirubin, Total 0.5 mg/dL (0.2-1.2); Calc. Creatinine Clearance 0 mL/min (70-130); Calcium 8.6 mg/dL (7.8-10.44); Carbon Dioxide 17 mmol/L (22-29); Chloride 110 mmol/L (98-107); Estimated GFR-MDRD Greater than 90; Globulin 2.7 g/dL (2.4-3.5); Glucose 68 mg/dL (70-105); Lipase 18 U/L (8-78); Potassium 3.7 mmol/L (3.5-5.1); Protein, Total 6.2 g/dL (6.0-8.3); Sodium 139 mmol/L (136-145)
[2016-09-10 13:59] LABS: Amylase 63 U/L (25-125)
== END 2016-09-10 15:30 | disposition home or self-care (01) ==
LOC: MADERS 11:11
DX: N39.0 Urinary tract infection, site not specified (principal); E86.0 Dehydration; M62.838 Other muscle spasm; E03.9 Hypothyroidism, unspecified; I10 Essential (primary) hypertension; F41.9 Anxiety disorder, unspecified; F31.9 Bipolar disorder, unspecified; F17.210 Nicotine dependence, cigarettes, uncomplicated; Z79.899 Other long term (current) drug therapy
CPT/HCPCS: 80053; 81003; 81015; 82150; 83690; 85025; 86140; 87086; 96361; 96374; J2405; J7050

== ENCOUNTER 2016-10-01 09:54 | Emergency (ER) | payer MEDICAID, OTHER ==
--- NOTE | 2016-10-01 10:33 | CT ---
HEAD CT NONCONTRAST: Comparison: 04-10-14 Clinical history: Post-traumatic headache. FINDINGS: There is no acute intracranial hemorrhage, mass effect, midline shift of ventriculomegaly. IMPRESSION: No acute intracranial hemorrhage or mass effect. POS: [facility]
[2016-10-01] MEDS ORDERED: Ondansetron HCl/PF 4 MG/2 ML Vial ONE (10:41)
[2016-10-01] MEDS ORDERED: Lorazepam 2 MG/ML VIAL ONE (10:41)
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
[2016-10-01 11:32] LABS: Band 1 % (5-11); Eosinophils 2 % (0-10); Hemoglobin 14.1 g/dL (12.0-16.0); Lymphocytes 46 % (21-51); MDiff Complete? YES; Mean Corpuscular HGB CONC 32.8 g/dL (32.0-36.0); Mean Corpuscular Hemoglobin 32.5 pg (27.0-31.0); Mean Corpuscular Volume 99.1 fl (81.0-99.0); Mean Platelet Volume 7.9 fL (7.4-10.4); Monocytes 5 % (0-10); Neutrophil 46 % (42-75); PLT Morphology Comment Appears Adequate; Platelet Count 289 thou/uL (130-400); RBC Distribution Width 12.3 % (11.5-14.5); Red Blood Cell (RBC) Count 4.35 mill/uL (4.20-5.40)
[2016-10-01 11:34] LABS: ALT (SGPT) 22 U/L (0-55); AST (SGOT) 25 U/L (5-34); Albumin 4.2 g/dL (3.5-5.0); Alkaline Phosphatase 69 U/L (40-150); Anion Gap 15 mmol/L (10-20); BUN (Urea Nitrogen) 12 mg/dL (7.0-18.7); Bilirubin, Total 0.4 mg/dL (0.2-1.2); Calc. Creatinine Clearance 0 mL/min (70-130); Calcium 9.7 mg/dL (7.8-10.44); Carbon Dioxide 25 mmol/L (22-29); Chloride 105 mmol/L (98-107); Estimated GFR-MDRD 81; Globulin 3.1 g/dL (2.4-3.5); Glucose 77 mg/dL (70-105); Lipase 42 U/L (8-78); Potassium 3.8 mmol/L (3.5-5.1); Protein, Total 7.3 g/dL (6.0-8.3); Sodium 141 mmol/L (136-145)
== END 2016-10-01 11:50 | disposition home or self-care (01) ==
LOC: MADERS 09:54
DX: T07 Unspecified multiple injuries (principal); E03.9 Hypothyroidism, unspecified; I10 Essential (primary) hypertension; F41.9 Anxiety disorder, unspecified; F31.9 Bipolar disorder, unspecified; F17.210 Nicotine dependence, cigarettes, uncomplicated; Z79.899 Other long term (current) drug therapy; V49.9XXA Car occupant (driver) (passenger) injured in unspecified traffic accident, initial encounter
CPT/HCPCS: 70450; 71010; 72072; 72100; 72125; 80053; 83690; 85025; 96374; 96375; J2060; J2270; J2405

== ENCOUNTER 2016-10-30 17:09 | Emergency (ER) | payer MEDICAID, OTHER ==
[2016-10-30 18:29] LABS: Clarity Clear (Clear); Glucose, Urine (Dipstick) Negative (Negative); Leukocyte Negative (Negative); Nitrite Negative (Negative); Protein, Urine (Dipstick) Negative (Neg-Trace); pH, Urine 7.5 (5.0-9.0)
[2016-10-30 18:30] LABS: Bacteria/HPF Rare-Few HPF (None Seen); Bilirubin Negative (Negative); Blood, Urine Trace (Negative); RBC/HPF 0-3 HPF (0-3); Squamous Epithelial 0-3 HPF (0-3); Urobilinogen 0.2 mg/dL (0.2-1.0); WBC/HPF 0-3 HPF (0-3)
--- NOTE | 2016-10-30 18:53 | RAD ---
EXAM: ONE VIEW CHEST 10/30/16 HISTORY: Abdominal pain. COMPARISON: 10/01/16 FINDINGS: Single view chest: The normal cardiac silhouette. Lungs and pleural spaces are clear. No pneumothorax or osseous abnorm alities. IMPRESSION: No acute cardiopulmonary process. POS: [facility]
[2016-10-30 19:05] LABS: Hemoglobin 13.5 g/dL (12.0-16.0); Lymphocytes 58 % (21-51); MDiff Complete? YES; Mean Corpuscular HGB CONC 33.1 g/dL (32.0-36.0); Mean Corpuscular Hemoglobin 32.5 pg (27.0-31.0); Mean Platelet Volume 8.1 fL (7.4-10.4); Monocytes 5 % (0-10); Neutrophil 37 % (42-75); PLT Morphology Comment Appears Adequate; Platelet Count 286 thou/uL (130-400); Red Blood Cell (RBC) Count 4.14 mill/uL (4.20-5.40); White Blood Cell (WBC) Count 7.8 thou/uL (4.8-10.8)
[2016-10-30 19:07] LABS: ALT (SGPT) 23 U/L (8-55); AST (SGOT) 32 U/L (5-34); Albumin 4.2 g/dL (3.5-5.0); Alkaline Phosphatase 75 U/L (40-150); Anion Gap 12 mmol/L (10-20); BUN (Urea Nitrogen) 10 mg/dL (7.0-18.7); Bilirubin, Total Less than 0.3 mg/dL (0.2-1.2); Calc. Creatinine Clearance 0 mL/min (70-130); Calcium 9.2 mg/dL (7.8-10.44); Carbon Dioxide 28 mmol/L (22-29); Chloride 104 mmol/L (98-107); Estimated GFR-MDRD 85; Globulin 3.1 g/dL (2.4-3.5); Glucose 77 mg/dL (70-105); Lipase 34 U/L (8-78); Potassium 3.8 mmol/L (3.5-5.1); Protein, Total 7.3 g/dL (6.0-8.3); Sodium 140 mmol/L (136-145)
[2016-10-30 19:13] LABS: Pregs Control Bar Appear? YES (CONTROL BAR)
[2016-10-30 19:14] LABS: Pregs Control Background? CLEAR/WHITE (CLR/WHITE)
[2016-10-30 19:17] LABS: BHCG - Serum NEGATIVE (NEGATIVE)
[2016-10-30] MEDS ORDERED: Morphine Sulfate 2 MG/ML SYRINGE ONE (19:53)
[2016-10-30] MEDS ORDERED: Ondansetron ODT 4 MG TAB ONE (19:53)
[2016-10-30] MEDS ORDERED: EPINEPHrine 1 MG/ML VIAL ONE (20:53)
--- NOTE | 2016-10-30 20:59 | CT ---
ABDOMEN AND PELVIC CT NONCONTRAST 10/30/16 COMPARISON: July 12, 2016. CLINICAL HISTORY: Right flank pain. Clinical concern for urolithiasis. FINDINGS: No noncontrast CT evidence of urolithiasis or obstructive uropathy. Moderately distended unopacified urinary bladder is grossly unremarkable. Solid abdominal viscera, bowel, lymph nodes and vasculatur e are incompletely assessed without the presence of IV or enteric contrast. There is no free air vis ualized. The imaged lung bases are clear. No acute osseous pathology. IMPRESSION: No CT evidence of urolithiasis, or obstructive uropathy. Punctate calcifications within the pelvis a re favored to reside external to the distal ureters in absence of hydroureter and may therefore refl ect phleboliths. POS: [facility]
[2016-10-30] MEDS ORDERED: diphenhydrAMINE HCl 25 MG CAP ONE (21:13)
--- NOTE | 2016-10-30 22:40 | CT ---
EXAM: ABDOMEN CT WITHOUT CONTRAST PELVIC CT WITHOUT CONTRAST 10/30/16 COMPARISON: 10/30/16 at 6:46 p.m. TECHNIQUE: Abdomen and pelvic CT are performed without IV contrast. Interval enteric contrast was administered. Coronal reformatted images are submitted for interpretation. FINDINGS: ABDOMEN CT: There is no change with regards to the lung bases or solid organs. There is no evidence of obstructi ve uropathy. Contrast opacifies a distended stomach. Contrast does pass from the stomach into multip le normal caliber small bowel loops. Ileocecal junction is normal. Normal caliber appendix is identi fied. Scattered fecal material in a nondistended, nondilated colon. Pelvic CT: No significant change. IMPRESSION: 1. Persistent contrast in a moderately distended stomach. Correlate for decreased gastric motil ity. Contrast does pass into multiple normal caliber small bowel loops. 2. Normal caliber appendix. POS: [facility]
== END 2016-10-31 00:03 | disposition home or self-care (01) ==
LOC: MADERS 17:09
DX: K31.84 Gastroparesis (principal); E03.9 Hypothyroidism, unspecified; I10 Essential (primary) hypertension; F41.9 Anxiety disorder, unspecified; F31.9 Bipolar disorder, unspecified; F17.210 Nicotine dependence, cigarettes, uncomplicated; Z21 Asymptomatic human immunodeficiency virus [HIV] infection status; Z79.899 Other long term (current) drug therapy
CPT/HCPCS: 36415; 71010; 74176; 80053; 81001; 82150; 83036; 83690; 84443; 84703; 85025; 87086; 96372; J0171; J2270; Q0162

== ENCOUNTER 2016-10-31 18:47 | Emergency (ER) | payer MEDICAID ==
[2016-10-31] MEDS ORDERED: Magnesium Citrate 300 ML BOT ONE (19:25)
--- NOTE | 2016-10-31 19:28 | RAD ---
EXAM: ONE VIEW CHEST ABDOMEN TWO VIEWS 10/31/16 COMPARISON: 05/18/14. CORRELATION: Abdomen and pelvic CT 10/30/16. FINDINGS: ONE VIEW CHEST: Normal cardiac silhouette. The lungs and pleural spaces are clear. ABDOMEN TWO VIEWS: Nonspecific bowel gas pattern. No pneumoperitoneum. No distention or dilatation. No differential air fluid levels. Ingested contrast is now within the colon. IMPRESSION: 1. No acute cardiopulmonary process. 2. Nonspecific bowel gas pattern. POS: [facility]
== END 2016-10-31 20:41 | disposition home or self-care (01) ==
LOC: MADERS 18:47
DX: K59.00 Constipation, unspecified (principal); E03.9 Hypothyroidism, unspecified; B20 Human immunodeficiency virus [HIV] disease; I10 Essential (primary) hypertension; F41.9 Anxiety disorder, unspecified; F31.9 Bipolar disorder, unspecified; F17.210 Nicotine dependence, cigarettes, uncomplicated; Z79.899 Other long term (current) drug therapy
CPT/HCPCS: 74022

== ENCOUNTER 2016-11-04 18:19 | Emergency (ER) | payer MEDICAID | END 2016-11-04 19:10 | disposition home or self-care (01) | LOC: MADERS 18:19 | DX: S16.1XXA Strain of muscle, fascia and tendon at neck level, initial encounter (principal); F15.10 Other stimulant abuse, uncomplicated; I10 Essential (primary) hypertension; E03.9 Hypothyroidism, unspecified; F41.9 Anxiety disorder, unspecified; F31.9 Bipolar disorder, unspecified; F17.210 Nicotine dependence, cigarettes, uncomplicated; Z21 Asymptomatic human immunodeficiency virus [HIV] infection status; Z79.899 Other long term (current) drug therapy; X58.XXXA Exposure to other specified factors, initial encounter | CPT/HCPCS: 99283 ==

== ENCOUNTER 2016-11-07 16:37 | Emergency (ER) | payer MEDICAID ==
[2016-11-07] MEDS ORDERED: Ondansetron ODT 4 MG TAB ONE (17:55)
== END 2016-11-07 18:05 | disposition home or self-care (01) ==
LOC: MADERS 16:37
DX: T47.3X1A Poisoning by saline and osmotic laxatives, accidental (unintentional), initial encounter (principal); R19.7 Diarrhea, unspecified; E03.9 Hypothyroidism, unspecified; B20 Human immunodeficiency virus [HIV] disease; I10 Essential (primary) hypertension; F41.9 Anxiety disorder, unspecified; F17.210 Nicotine dependence, cigarettes, uncomplicated; F31.9 Bipolar disorder, unspecified; Z79.899 Other long term (current) drug therapy
CPT/HCPCS: 99283; Q0162

== ENCOUNTER 2017-01-21 17:53 | Emergency (ER) | payer MEDICAID ==
[2017-01-21] MEDS ORDERED: guaiFENesin ER 600 MG TAB ONE (18:44)
[2017-01-21] MEDS ORDERED: Loratadine 10 MG TAB ONE (18:44)
== END 2017-01-21 18:53 | disposition home or self-care (01) ==
LOC: MADERS 17:53
DX: J30.9 Allergic rhinitis, unspecified (principal); J02.9 Acute pharyngitis, unspecified; E03.9 Hypothyroidism, unspecified; B20 Human immunodeficiency virus [HIV] disease; I10 Essential (primary) hypertension; F41.9 Anxiety disorder, unspecified; F31.9 Bipolar disorder, unspecified; F17.210 Nicotine dependence, cigarettes, uncomplicated
CPT/HCPCS: 36416

== ENCOUNTER 2017-01-21 22:41 | Emergency (ER) | payer MEDICAID ==
[2017-01-21 23:30] LABS: Pregnancy Test - Urine (BHCG) Negative (Negative); Pregu Control Bar Appear? YES (CONTROL BAR)
[2017-01-21 23:31] LABS: Pregu Control Background? CLEAR/WHITE (CLR/WHITE)
[2017-01-21 23:58] LABS: Amphetamine Detected (NotDetected); Barbiturates Screen Not Detected (NotDetected); Benzodiazepine Screen Detected (NotDetected); Cocaine Metabolite Screen Not Detected (NotDetected); Methadone Not Detected (NotDetected); Methamphetamine Detected (NotDetected); Opiate Screen Detected (NotDetected); Phencyclidine (PCP) Detected (NotDetected); THC/Cannabinoid Screen Not Detected (NotDetected); Tricyclic Screen Not Detected (NotDetected)
[2017-01-21 23:59] LABS: Medtox Control Line Valid? VALID (VALID); Oxycodone Screen Not Detected (NotDetected)
[2017-01-22 00:08] LABS: ALT (SGPT) 21 U/L (8-55); AST (SGOT) 25 U/L (5-34); Albumin 4.4 g/dL (3.5-5.0); Alkaline Phosphatase 93 U/L (40-150); Anion Gap 19 mmol/L (10-20); BUN (Urea Nitrogen) 16 mg/dL (7.0-18.7); Bilirubin, Total 0.5 mg/dL (0.2-1.2); Calc. Creatinine Clearance 0 mL/min (70-130); Calcium 9.5 mg/dL (7.8-10.44); Carbon Dioxide 23 mmol/L (22-29); Chloride 102 mmol/L (98-107); Estimated GFR-MDRD 76; Globulin 3.4 g/dL (2.4-3.5); Glucose 83 mg/dL (70-105); Lipase 21 U/L (8-78); Potassium 4.8 mmol/L (3.5-5.1); Protein, Total 7.8 g/dL (6.0-8.3); Sodium 139 mmol/L (136-145)
[2017-01-22 00:09] LABS: Eosinophils 1 % (0-10); Hemoglobin 13.9 g/dL (12.0-16.0); Lymphocytes 42 % (21-51); MDiff Complete? YES; Mean Corpuscular HGB CONC 31.4 g/dL (32.0-36.0); Mean Corpuscular Hemoglobin 31.5 pg (27.0-31.0); Mean Corpuscular Volume 100.2 fl (81.0-99.0); Monocytes 4 % (0-10); Neutrophil 48 % (42-75); PLT Morphology Comment Appears Adequate; Platelet Count 273 thou/uL (130-400); RBC Distribution Width 13.2 % (11.5-14.5); RBC Morphology Normal; Reactive Lymphocytes 5 % (0-10); Red Blood Cell (RBC) Count 4.43 mill/uL (4.20-5.40); White Blood Cell (WBC) Count 6.8 thou/uL (4.8-10.8)
[2017-01-22 00:10] LABS: CKMB 0.9 ng/mL (0-6.6); Troponin I Less than 0.010 ng/mL (< 0.028)
[2017-01-22 00:36] LABS: Bilirubin Negative (Negative); Blood, Urine Trace (Negative); Clarity Clear (Clear); Glucose, Urine (Dipstick) Negative (Negative); Leukocyte Negative (Negative); Nitrite Negative (Negative); Protein, Urine (Dipstick) Negative (Neg-Trace); Urobilinogen 0.2 mg/dL (0.2-1.0)
[2017-01-22 00:37] LABS: Bacteria/HPF None Seen HPF (None Seen); Squamous Epithelial 0-3 HPF (0-3); WBC/HPF 0-3 HPF (0-3)
== END 2017-01-22 01:24 | disposition home or self-care (01) ==
LOC: MADERS 22:41
DX: R07.89 Other chest pain (principal); J30.9 Allergic rhinitis, unspecified; F15.10 Other stimulant abuse, uncomplicated; F16.10 Hallucinogen abuse, uncomplicated; R20.2 Paresthesia of skin; E03.9 Hypothyroidism, unspecified; I10 Essential (primary) hypertension; B20 Human immunodeficiency virus [HIV] disease; F31.9 Bipolar disorder, unspecified; F41.9 Anxiety disorder, unspecified; F17.210 Nicotine dependence, cigarettes, uncomplicated
CPT/HCPCS: 36416; 80053; 80306; 81003; 81015; 81025; 82553; 83690; 84484; 85025; 93005; 99284

== ENCOUNTER 2017-02-25 10:49 | Emergency (ER) | payer OTHER ==
[2017-02-25] MEDS ORDERED: Metoclopramide HCl 10 MG/2 ML VIAL ONE (12:06)
[2017-02-25] MEDS ORDERED: Ondansetron HCl/PF 4 MG/2 ML Vial ONE (12:06)
[2017-02-25 12:09] LABS: #Eosinphils 0.1 thou/uL (0.0-0.7); #Monocytes 0.4 thou/uL (0.11-0.59); #Neutrophils 5.6 thou/uL (1.40-6.50); %Basophils 0.6 % (0.0-1.0); %Eosinophils 0.7 % (0.0-10.0); %Lymphocytes 24.5 % (21.0-51.0); %Neutrophils 69.2 % (42.0-75.0); Hemoglobin 13.3 g/dL (12.0-16.0); Mean Corpuscular HGB CONC 32.6 g/dL (32.0-36.0); Mean Corpuscular Hemoglobin 31.7 pg (27.0-31.0); Mean Corpuscular Volume 97.2 fl (81.0-99.0); Mean Platelet Volume 8.1 fL (7.4-10.4); Platelet Count 242 thou/uL (130-400); RBC Distribution Width 12.2 % (11.5-14.5); White Blood Cell (WBC) Count 8.1 thou/uL (4.8-10.8)
--- NOTE | 2017-02-25 12:15 | RAD ---
CHEST ONE VIEW: HISTORY: Nausea and vomiting. COMPARISON: 10/30/2016 FINDINGS: The cardiac silhouette is magnified by projection. The pulmonary vasculature is unremarkable. The mediastinum is midline. There is no confluent air space consolidation or evidence of pneumothorax. IMPRESSION: No active cardiopulmonary abnormalities are demonstrated. POS: [facility]
[2017-02-25 12:20] LABS: Hemoglobin A1c 5.2 % (4.0-6.0)
[2017-02-25 12:26] LABS: ALT (SGPT) 19 U/L (8-55); AST (SGOT) 26 U/L (5-34); Albumin 3.9 g/dL (3.5-5.0); Alkaline Phosphatase 80 U/L (40-150); Anion Gap 17 mmol/L (10-20); BUN (Urea Nitrogen) 7 mg/dL (7.0-18.7); Bilirubin, Total 0.4 mg/dL (0.2-1.2); Calc. Creatinine Clearance 0 mL/min (70-130); Calcium 9.5 mg/dL (7.8-10.44); Carbon Dioxide 25 mmol/L (22-29); Chloride 107 mmol/L (98-107); Estimated GFR-MDRD Greater than 90; Globulin 3.2 g/dL (2.4-3.5); Glucose 90 mg/dL (70-105); Lipase 23 U/L (8-78); Potassium 3.6 mmol/L (3.5-5.1); Protein, Total 7.1 g/dL (6.0-8.3); Sodium 145 mmol/L (136-145)
[2017-02-25 12:51] LABS: Bilirubin Negative (Negative); Blood, Urine Trace (Negative); Clarity Clear (Clear); Glucose, Urine (Dipstick) Negative (Negative); Icto Negative (Negative); Leukocyte Negative (Negative); Nitrite Negative (Negative); Protein, Urine (Dipstick) Negative (Neg-Trace); Urobilinogen 0.2 mg/dL (0.2-1.0)
[2017-02-25 12:57] LABS: Bacteria/HPF Rare-Few HPF (None Seen); WBC/HPF None Seen HPF (0-3)
[2017-02-25] MEDS ORDERED: Ciprofloxacin 500 MG TAB ONE (13:39)
[2017-02-25] MEDS ORDERED: metroNIDAZOLE 250 MG TAB ONE (13:39)
== END 2017-02-25 14:05 | disposition home or self-care (01) ==
LOC: MADERS 10:49
DX: K57.92 Diverticulitis of intestine, part unspecified, without perforation or abscess without bleeding (principal); E03.9 Hypothyroidism, unspecified; B20 Human immunodeficiency virus [HIV] disease; I10 Essential (primary) hypertension; F41.9 Anxiety disorder, unspecified; F17.210 Nicotine dependence, cigarettes, uncomplicated; F32.9 Major depressive disorder, single episode, unspecified
CPT/HCPCS: 36415; 71010; 80053; 81001; 82150; 83036; 83690; 85025; 87086; 96361; 96374; 96375; J2405; J2765; J7050

== ENCOUNTER 2017-03-11 23:52 | Emergency (ER) | payer OTHER | END 2017-03-12 01:04 | disposition home or self-care (01) | LOC: MADERS 23:52 | DX: L29.9 Pruritus, unspecified (principal); B20 Human immunodeficiency virus [HIV] disease; E03.9 Hypothyroidism, unspecified; F41.9 Anxiety disorder, unspecified; F17.210 Nicotine dependence, cigarettes, uncomplicated; F32.9 Major depressive disorder, single episode, unspecified; I10 Essential (primary) hypertension | CPT/HCPCS: 99282 ==

== ENCOUNTER 2017-03-17 14:25 | Emergency (ER) | payer OTHER | END 2017-03-17 16:10 | disposition home or self-care (01) | LOC: MADERS 14:25 | DX: F43.20 Adjustment disorder, unspecified (principal); F10.10 Alcohol abuse, uncomplicated; F15.10 Other stimulant abuse, uncomplicated; E03.9 Hypothyroidism, unspecified; I10 Essential (primary) hypertension; F41.9 Anxiety disorder, unspecified; F31.9 Bipolar disorder, unspecified; F17.210 Nicotine dependence, cigarettes, uncomplicated; Z21 Asymptomatic human immunodeficiency virus [HIV] infection status; Z79.899 Other long term (current) drug therapy | CPT/HCPCS: 99284 ==

== ENCOUNTER 2017-04-15 15:49 | Emergency (ER) | payer OTHER ==
[2017-04-15] MEDS ORDERED: cefTRIAXone\\ROCEPHIN 1 GM VIAL ONE (16:39)
[2017-04-15] MEDS ORDERED: Azithromycin 250 MG TAB ONE (16:39)
[2017-04-15] MEDS ORDERED: Lidocaine 1% 20 ML MDV ONE (16:40)
[2017-04-15 16:50] LABS: Bilirubin Negative (Negative); Blood, Urine Small (Negative); Clarity Clear (Clear); Glucose, Urine (Dipstick) Negative (Negative); Leukocyte Moderate (Negative); Nitrite Negative (Negative); Pregnancy Test - Urine (BHCG) Negative (Negative); Pregu Control Background? CLEAR/WHITE (CLR/WHITE); Pregu Control Bar Appear? YES (CONTROL BAR); Protein, Urine (Dipstick) Negative (Neg-Trace); Specific Gravity 1.025 (1.002-1.036); Specific Gravity, Urine 1.025 (1.005-1.030); Urobilinogen 0.2 mg/dL (0.2-1.0); pH, Urine 5.5 (5.0-9.0)
[2017-04-15 17:00] LABS: WBC/HPF 21-50 HPF (0-3)
[2017-04-15 17:01] LABS: Bacteria/HPF Rare-Few HPF (None Seen); Trichomonas/HPF Rare HPF (None Seen)
[2017-04-19 01:06] LABS: Chlamydia by PCR Not Detected (NotDetected); GC by PCR DETECTED (NotDetected)
== END 2017-04-15 17:00 | disposition home or self-care (01) ==
LOC: MADERS 15:49
DX: N76.0 Acute vaginitis (principal); E03.9 Hypothyroidism, unspecified; B20 Human immunodeficiency virus [HIV] disease; I10 Essential (primary) hypertension; F41.9 Anxiety disorder, unspecified; F31.9 Bipolar disorder, unspecified; F17.210 Nicotine dependence, cigarettes, uncomplicated; Z79.899 Other long term (current) drug therapy
CPT/HCPCS: 81003; 81015; 81025; 87491; 87591; 96372; J0696; J2001

== ENCOUNTER 2017-06-10 18:03 | Emergency (ER) | payer OTHER ==
[2017-06-10 19:47] LABS: Bilirubin Negative (Negative); Blood, Urine Trace (Negative); Glucose, Urine (Dipstick) Negative (Negative); Leukocyte Moderate (Negative); Nitrite Negative (Negative); Protein, Urine (Dipstick) Negative (Neg-Trace); Urobilinogen 0.2 mg/dL (0.2-1.0); pH, Urine 6.5 (5.0-9.0)
[2017-06-10 19:48] LABS: Clarity Hazy (Clear); Pregnancy Test - Urine (BHCG) Negative (Negative); Pregu Control Background? CLEAR/WHITE (CLR/WHITE); Pregu Control Bar Appear? YES (CONTROL BAR)
[2017-06-10 19:52] LABS: Bacteria/HPF Rare-Few HPF (None Seen); RBC/HPF 0-3 HPF (0-3); Trichomonas/HPF 1+ HPF (None Seen)
--- NOTE | 2017-06-10 20:24 | CT ---
CT OF THE ABDOMEN AND PELVIS 06/10/17 PROVIDED CLINICAL HISTORY: Low back pain. FINDINGS: Comparison is made with the study dated 10/30/06. The visualized lung bases are free of significant opacity. There is no evidence for urinary tract calculi or hydronephrosis. The solid abdominal organs are suboptimally evaluated without IV contrast but demonstrate an unremark able unenhanced CT appearance. There is no bowel dilatation, inflammatory fat stranding, free fluid, or free air apparent. There is conspicuous colonic fecal retention suggesting constipation. The osseo us structures demonstrate no concerning osteoblastic or osteolytic lesions. The appendix appears norm al. IMPRESSION: 1. No evidence for urinary tract calculi or hydronephrosis. 2. Findings suggesting constipation. POS: [facility]
[2017-06-10] MEDS ORDERED: Acetaminophen/Codeine 30-300mg Tablet ONE (20:51)
[2017-06-10] MEDS ORDERED: Azithromycin 250 MG TAB ONE (20:51)
[2017-06-10] MEDS ORDERED: Magnesium Citrate 300 ML BOT ONE (21:55)
== END 2017-06-10 22:04 | disposition left against medical advice (07) ==
LOC: MADERS 18:03
DX: M54.5 Low back pain (principal); K59.00 Constipation, unspecified; E03.9 Hypothyroidism, unspecified; B20 Human immunodeficiency virus [HIV] disease; I10 Essential (primary) hypertension; F41.9 Anxiety disorder, unspecified; F31.9 Bipolar disorder, unspecified; F17.210 Nicotine dependence, cigarettes, uncomplicated; Z79.899 Other long term (current) drug therapy
CPT/HCPCS: 74176; 81003; 81015; 81025; 87086

== ENCOUNTER 2017-11-28 14:12 | Emergency (ER) | payer OTHER ==
[2017-11-28 15:27] LABS: Bilirubin Negative (Negative); Blood, Urine Trace (Negative); Clarity Clear (Clear); Glucose, Urine (Dipstick) Negative (Negative); Leukocyte Negative (Negative); Nitrite Negative (Negative); Protein, Urine (Dipstick) Trace mg/dL (Neg-Trace); Specific Gravity, Urine 1.025 (1.005-1.030); Urobilinogen 0.2 mg/dL (0.2-1.0); pH, Urine 5.5 (5.0-9.0)
[2017-11-28 15:28] LABS: Pregnancy Test - Urine (BHCG) Negative (Negative); Pregu Control Background? CLEAR/WHITE (CLR/WHITE); Pregu Control Bar Appear? YES (CONTROL BAR); Specific Gravity 1.025 (1.002-1.036)
[2017-11-28 15:31] LABS: Amphetamine Detected (NotDetected); Barbiturates Screen Detected (NotDetected); Benzodiazepine Screen Not Detected (NotDetected); Cocaine Metabolite Screen Not Detected (NotDetected); Medtox Control Line Valid? VALID (VALID); Methadone Not Detected (NotDetected); Methamphetamine Detected (NotDetected); Opiate Screen Not Detected (NotDetected); Oxycodone Screen Not Detected (NotDetected); Phencyclidine (PCP) Not Detected (NotDetected); THC/Cannabinoid Screen Not Detected (NotDetected); Tricyclic Screen Not Detected (NotDetected)
[2017-11-28 15:41] LABS: Bacteria/HPF Rare-Few HPF (None Seen); Hyaline Casts/LPF 4-6 HYALINE CAST LPF (0-3 Hyaline); RBC/HPF 0-3 HPF (0-3); WBC/HPF 0-3 HPF (0-3)
[2017-11-28 16:14] LABS: Anion Gap 15 mmol/L (10-20); BUN (Urea Nitrogen) 11 mg/dL (7.0-18.7); Calc. Creatinine Clearance 0 mL/min (70-130); Calcium 9.5 mg/dL (7.8-10.44); Carbon Dioxide 25 mmol/L (22-29); Chloride 104 mmol/L (98-107); Estimated GFR-MDRD 89; Glucose 89 mg/dL (70-105); Potassium 4.3 mmol/L (3.5-5.1); Sodium 140 mmol/L (136-145)
[2017-11-28 16:15] LABS: Band 1 % (5-11); Eosinophils 2 % (0-10); Hemoglobin 13.8 g/dL (12.0-16.0); Lymphocytes 37 % (21-51); MDiff Complete? YES; Mean Corpuscular HGB CONC 32.1 g/dL (32.0-36.0); Mean Corpuscular Hemoglobin 30.6 pg (27.0-31.0); Mean Corpuscular Volume 95.5 fl (81.0-99.0); Mean Platelet Volume 7.2 fL (7.4-10.4); Monocytes 2 % (0-10); Myelocyte 1 % (0-0); Neutrophil 40 % (42-75); PLT Morphology Comment Appears Adequate; Platelet Count 306 thou/uL (130-400); RBC Distribution Width 12.2 % (11.5-14.5); RBC Morphology Normal; Reactive Lymphocytes 17 % (0-10); Red Blood Cell (RBC) Count 4.51 mill/uL (4.20-5.40); White Blood Cell (WBC) Count 7.2 thou/uL (4.8-10.8)
[2017-11-28] MEDS ORDERED: Famotidine In NaCl 20 mg/50 ml Premix Bag ONE (16:18)
[2017-11-28] MEDS ORDERED: Ondansetron HCl/PF 4 MG/2 ML Vial ONE (16:18)
== END 2017-11-28 16:50 | disposition home or self-care (01) ==
LOC: MADERS 14:12
DX: R10.9 Unspecified abdominal pain (principal); E03.9 Hypothyroidism, unspecified; I10 Essential (primary) hypertension; F41.9 Anxiety disorder, unspecified; B20 Human immunodeficiency virus [HIV] disease; F31.9 Bipolar disorder, unspecified; F17.210 Nicotine dependence, cigarettes, uncomplicated; Z79.899 Other long term (current) drug therapy
CPT/HCPCS: 80048; 80306; 81003; 81015; 81025; 82150; 85025; 96374; 96375; J2405

== ENCOUNTER 2018-01-10 10:20 | Emergency (ER) | payer OTHER ==
--- NOTE | 2018-01-10 11:16 | RAD ---
TWO VIEWS CHEST: History: Chest pain. Comparison: 2017 FINDINGS: The lungs are without focal airspace consolidation, pneumothorax or effusion. Cardiac silhouette and mediastinal contours are within normal limits. No acute osseous abnormality. IMPRESSION: No acute intrathoracic abnormality. POS: [facility]
[2018-01-10 11:22] LABS: #Basophils 0.1 thou/uL (0.0-0.2); #Eosinphils 0.1 thou/uL (0.0-0.7); #Lymphocytes 4.3 thou/uL (1.20-3.40); #Monocytes 0.6 thou/uL (0.11-0.59); #Neutrophils 4.4 thou/uL (1.40-6.50); %Basophils 0.8 % (0.0-1.0); %Lymphocytes 45.5 % (21.0-51.0); %Monocytes 6.4 % (0.0-10.0); %Neutrophils 46.3 % (42.0-75.0); Hemoglobin 12.2 g/dL (12.0-16.0); Mean Corpuscular HGB CONC 32.5 g/dL (32.0-36.0); Mean Corpuscular Hemoglobin 31.5 pg (27.0-31.0); Mean Corpuscular Volume 96.7 fL (78.0-98.0); Mean Platelet Volume 6.9 fL (7.4-10.4); Platelet Count 338 thou/uL (130-400); RBC Distribution Width 12.8 % (11.5-14.5); Red Blood Cell (RBC) Count 3.88 mill/uL (4.20-5.40); White Blood Cell (WBC) Count 9.5 thou/uL (4.8-10.8)
[2018-01-10 11:38] LABS: ALT (SGPT) 12 U/L (8-55); AST (SGOT) 15 U/L (5-34); Albumin 3.6 g/dL (3.5-5.0); Alkaline Phosphatase 62 U/L (40-150); Anion Gap 14 mmol/L (10-20); BUN (Urea Nitrogen) 6 mg/dL (7.0-18.7); Bilirubin, Total 0.3 mg/dL (0.2-1.2); Calc. Creatinine Clearance 0 mL/min (70-130); Calcium 8.6 mg/dL (7.8-10.44); Carbon Dioxide 22 mmol/L (22-29); Chloride 110 mmol/L (98-107); Estimated GFR-MDRD Greater than 90; Globulin 2.8 g/dL (2.4-3.5); Glucose 98 mg/dL (70-105); Lipase 40 U/L (8-78); Potassium 3.6 mmol/L (3.5-5.1); Protein, Total 6.4 g/dL (6.0-8.3); Sodium 142 mmol/L (136-145)
--- NOTE | 2018-01-10 11:58 | CT ---
CT OF THE ABDOMEN AND PELVIS WITHOUT IV CONTRAST: INDICATION: History of right-sided abdominal pain since this morning. COMPARISON: Prior exam dated 06/10/17. FINDINGS: No renal or ureteral calculus is evident. There is a normal appendix in the right lower quadrant. T here is a moderate amount of retained stool within the colon. The unopacified liver, spleen, spleen, pancreas, and adrenal glands appear within normal limits. No acute osseous abnormality is evident. IMPRESSION: 1. No renal or ureteral calculus. 2. Normal appendix. 3. Moderate amount of retained stool within the colon. POS: [facility]
[2018-01-10 11:59] LABS: BHCG - Serum Negative (NEGATIVE); Pregs Control Background? CLEAR/WHITE (CLR/WHITE); Pregs Control Bar Appear? YES (CONTROL BAR)
== END 2018-01-10 12:35 | disposition home or self-care (01) ==
LOC: MADERS 10:20
DX: R07.89 Other chest pain (principal); R10.84 Generalized abdominal pain; E03.9 Hypothyroidism, unspecified; I10 Essential (primary) hypertension; B20 Human immunodeficiency virus [HIV] disease; F41.9 Anxiety disorder, unspecified; F31.9 Bipolar disorder, unspecified; F17.210 Nicotine dependence, cigarettes, uncomplicated; Z79.899 Other long term (current) drug therapy
CPT/HCPCS: 36415; 71046; 74176; 80053; 83690; 84703; 85025; 93005

== ENCOUNTER 2018-03-17 13:10 | Emergency (ER) | payer OTHER ==
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
[2018-03-17 15:15] LABS: Bilirubin Negative (Negative); Blood, Urine Trace (Negative); Clarity Clear (Clear); Glucose, Urine (Dipstick) Negative (Negative); Leukocyte Negative (Negative); Nitrite Negative (Negative); Protein, Urine (Dipstick) Negative (Neg-Trace); Urobilinogen 0.2 mg/dL (0.2-1.0)
[2018-03-17 15:26] LABS: Bacteria/HPF Rare-Few HPF (None Seen); RBC/HPF 0-3 HPF (0-3); WBC/HPF None Seen HPF (0-3)
== END 2018-03-17 15:38 | disposition home or self-care (01) ==
LOC: MADERS 13:10
DX: R14.0 Abdominal distension (gaseous) (principal); E03.9 Hypothyroidism, unspecified; B20 Human immunodeficiency virus [HIV] disease; I10 Essential (primary) hypertension; F41.9 Anxiety disorder, unspecified; F17.210 Nicotine dependence, cigarettes, uncomplicated; F31.9 Bipolar disorder, unspecified; Z79.899 Other long term (current) drug therapy
CPT/HCPCS: 74019; 81003; 81015; 96372

== ENCOUNTER 2018-03-24 08:31 | Emergency (ER) | payer OTHER ==
[2018-03-24] MEDS ORDERED: predniSONE 20 MG TAB ONE (09:21)
== END 2018-03-24 09:25 | disposition home or self-care (01) ==
LOC: MADERS 08:31
DX: M79.602 Pain in left arm (principal); M79.601 Pain in right arm; E03.9 Hypothyroidism, unspecified; B20 Human immunodeficiency virus [HIV] disease; F41.9 Anxiety disorder, unspecified; F31.9 Bipolar disorder, unspecified; F17.210 Nicotine dependence, cigarettes, uncomplicated; Z79.899 Other long term (current) drug therapy
CPT/HCPCS: 99282; J7506

== ENCOUNTER 2018-05-22 11:19 | Emergency (ER) | payer OTHER ==
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
== END 2018-05-22 12:38 | disposition home or self-care (01) ==
LOC: MADERS 11:19
DX: R56.9 Unspecified convulsions (principal); E03.9 Hypothyroidism, unspecified; B20 Human immunodeficiency virus [HIV] disease; I10 Essential (primary) hypertension; F41.9 Anxiety disorder, unspecified; F31.9 Bipolar disorder, unspecified; F17.210 Nicotine dependence, cigarettes, uncomplicated; Z79.899 Other long term (current) drug therapy
CPT/HCPCS: 70450; 70486; 72125

== ENCOUNTER 2018-06-29 23:40 | Emergency (ER) | payer OTHER, SELFPAY ==
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
== END 2018-06-30 01:11 ==
LOC: MADERS 23:40
DX: S13.9XXA Sprain of joints and ligaments of unspecified parts of neck, initial encounter (principal); E03.9 Hypothyroidism, unspecified; B20 Human immunodeficiency virus [HIV] disease; I10 Essential (primary) hypertension; F41.9 Anxiety disorder, unspecified; F31.9 Bipolar disorder, unspecified; F17.210 Nicotine dependence, cigarettes, uncomplicated; Z79.899 Other long term (current) drug therapy; W06.XXXA Fall from bed, initial encounter
CPT/HCPCS: 70450; 72125

== ENCOUNTER 2018-07-25 02:09 | Emergency (ER) | payer OTHER, SELFPAY ==
[2018-07-25] MEDS ORDERED: Prochlorperazine 10 MG/2 ML VIAL ONE (02:29)
[2018-07-25] MEDS ORDERED: Pantoprazole 40 MG VIAL ONE (02:29)
== END 2018-07-25 03:36 | disposition home or self-care (01) ==
LOC: MADERS 02:09
DX: K29.20 Alcoholic gastritis without bleeding (principal); E03.9 Hypothyroidism, unspecified; B20 Human immunodeficiency virus [HIV] disease; I10 Essential (primary) hypertension; F41.9 Anxiety disorder, unspecified; F31.9 Bipolar disorder, unspecified; F17.210 Nicotine dependence, cigarettes, uncomplicated; Z79.899 Other long term (current) drug therapy
CPT/HCPCS: 96361; 96374; 96375; C9113; J0780

== ENCOUNTER 2018-08-16 09:27 | Emergency (ER) | payer OTHER ==
[2018-08-16 10:11] LABS: Bilirubin Negative (Negative); Blood, Urine Trace (Negative); Clarity Clear (Clear); Glucose, Urine (Dipstick) Negative (Negative); Leukocyte Negative (Negative); Nitrite Negative (Negative); Protein, Urine (Dipstick) Negative (Neg-Trace); Specific Gravity, Urine 1.015 (1.005-1.030)
[2018-08-16 10:12] LABS: RBC/HPF 0-3 HPF (0-3)
[2018-08-16 10:13] LABS: Bacteria/HPF Rare-Few HPF (None Seen); Squamous Epithelial 0-3 HPF (0-3); WBC/HPF 0-3 HPF (0-3)
== END 2018-08-16 11:08 | disposition home or self-care (01) ==
LOC: MADERS 09:27
DX: T78.40XA Allergy, unspecified, initial encounter (principal); R23.8 Other skin changes
CPT/HCPCS: 81001; 99283

== ENCOUNTER 2019-07-10 18:36 | Emergency (ER) | payer MEDICAID, OTHER ==
--- NOTE | 2019-07-10 19:10 | RAD ---
EXAM: Chest PA and lateral: HISTORY: Cough COMPARISON: 01/10/2018 FINDINGS: Heart: Normal cardiac silhouette Aorta: Unremarkable Pulmonary vessels: Normal Costophrenic angles: Costophrenic angles are clear. Lungs: No consolidation or masses. Pneumothorax: No pneumothorax Osseous structures: No osseous abnormalities IMPRESSION: No acute cardiopulmonary process.
[2019-07-10] MEDS ORDERED: Albuterol Sulfate 2.5 mg/3 ml Neb ONE (19:19)
[2019-07-10] MEDS ORDERED: Ondansetron PF 4 MG/2 ML Vial ONE (19:19)
[2019-07-10] MEDS ORDERED: predniSONE 20 MG TAB ONE (19:19)
== END 2019-07-10 20:16 | disposition home or self-care (01) ==
LOC: MADERS 18:36
DX: J45.901 Unspecified asthma with (acute) exacerbation (principal); J06.9 Acute upper respiratory infection, unspecified; R11.2 Nausea with vomiting, unspecified; B20 Human immunodeficiency virus [HIV] disease; I10 Essential (primary) hypertension; F17.210 Nicotine dependence, cigarettes, uncomplicated; Z79.899 Other long term (current) drug therapy
CPT/HCPCS: 71046; 94640; 96361; 96374; J2405; J7512; J7611

== ENCOUNTER 2020-01-02 13:49 | Emergency (ER) | payer OTHER ==
[2020-01-02] MEDS ORDERED: Acetaminophen 500 MG TAB ONE (14:03)
== END 2020-01-02 14:51 | disposition home or self-care (01) ==
LOC: MADERS 13:49
DX: T59.811A Toxic effect of smoke, accidental (unintentional), initial encounter (principal); S29.019A Strain of muscle and tendon of unspecified wall of thorax, initial encounter; F15.10 Other stimulant abuse, uncomplicated; B20 Human immunodeficiency virus [HIV] disease; I10 Essential (primary) hypertension; F17.210 Nicotine dependence, cigarettes, uncomplicated; Z79.899 Other long term (current) drug therapy; X50.1XXA Overexertion from prolonged static or awkward postures, initial encounter; Y93.31 Activity, mountain climbing, rock climbing and wall climbing
CPT/HCPCS: 99406

== ENCOUNTER 2020-03-11 18:45 | Emergency (ER) | payer OTHER ==
[2020-03-11] MEDS ORDERED: Lorazepam 2 MG/ML VIAL ONE ×2 (18:58→20:10)
== END 2020-03-12 00:14 | disposition home or self-care (01) ==
LOC: MADERS 18:45
DX: F16.10 Hallucinogen abuse, uncomplicated (principal); F12.10 Cannabis abuse, uncomplicated; B20 Human immunodeficiency virus [HIV] disease; F31.9 Bipolar disorder, unspecified; F17.210 Nicotine dependence, cigarettes, uncomplicated; Z79.899 Other long term (current) drug therapy
CPT/HCPCS: 96374; 96376; J2060

== ENCOUNTER 2020-07-10 15:02 | Emergency (ER) | payer OTHER ==
[2020-07-10 16:04] LABS: Bilirubin Negative (Negative); Blood, Urine Trace (Negative); Clarity Clear (Clear); Glucose, Urine (Dipstick) Negative (Negative); Ketone, Urine Negative (Negative); Leukocyte Negative (Negative); Nitrite Negative (Negative); Protein, Urine (Dipstick) Negative (Neg-Trace); Urobilinogen 0.2 mg/dL (Less than 2)
[2020-07-10 16:07] LABS: Specific Gravity, Urine 1.023 (1.002-1.036)
[2020-07-10 16:08] LABS: Pregnancy Test - Urine (BHCG) Negative (Negative); Pregu Control Background? CLEAR/WHITE (CLR/WHITE); Pregu Control Bar Appear? YES (CONTROL BAR); Specific Gravity 1.023 (1.002-1.036)
[2020-07-10 16:10] LABS: Bacteria/HPF Rare-Few HPF (None Seen); RBC/HPF 0-3 HPF (0-3); Squamous Epithelial 0-3 HPF (0-3); WBC/HPF None Seen HPF (0-3)
[2020-07-10 16:15] LABS: Amphetamine Detected (NotDetected); Barbiturates Screen Not Detected (NotDetected); Benzodiazepine Screen Not Detected (NotDetected); Cocaine Metabolite Screen Not Detected (NotDetected); Medtox Control Line Valid? VALID (VALID); Methadone Not Detected (NotDetected); Methamphetamine Detected (NotDetected); Opiate Screen Not Detected (NotDetected); Oxycodone Screen Not Detected (NotDetected); Phencyclidine (PCP) Detected (NotDetected); THC/Cannabinoid Screen Not Detected (NotDetected); Tricyclic Screen Not Detected (NotDetected)
[2020-07-10 16:29] LABS: #Eosinphils 0.1 thou/uL (0.0-0.7); #Lymphocytes 2.7 thou/uL (1.20-3.40); #Monocytes 0.3 thou/uL (0.11-0.59); #Neutrophils 2.3 thou/uL (1.40-6.50); %Basophils 0.7 % (0.0-1.0); %Eosinophils 1.6 % (0.0-10.0); %Lymphocytes 49.3 % (21.0-51.0); %Monocytes 6.1 % (0.0-10.0); %Neutrophils 42.3 % (42.0-75.0); Mean Corpuscular HGB CONC 32.4 g/dL (32.0-36.0); Mean Corpuscular Hemoglobin 31.5 pg (27.0-31.0); Mean Corpuscular Volume 97.2 fL (78.0-98.0); Mean Platelet Volume 8.2 fL (7.4-10.4); Platelet Count 241 thou/uL (130-400); RBC Distribution Width 11.2 % (11.5-14.5); Red Blood Cell (RBC) Count 3.81 mill/uL (4.20-5.40); White Blood Cell (WBC) Count 5.5 thou/uL (4.8-10.8)
[2020-07-10 16:46] LABS: ALT (SGPT) 21 U/L (8-55); AST (SGOT) 28 U/L (5-34); Albumin 3.6 g/dL (3.5-5.0); Alkaline Phosphatase 59 U/L (40-110); Anion Gap 12 mmol/L (10-20); BUN (Urea Nitrogen) 9 mg/dL (7.0-18.7); Bilirubin, Total 0.2 mg/dL (0.2-1.2); Calc. Creatinine Clearance 0 mL/min (70-130); Calcium 8.7 mg/dL (7.8-10.44); Carbon Dioxide 25 mmol/L (22-29); Chloride 108 mmol/L (98-107); Globulin 2.8 g/dL (2.4-3.5); Glucose 91 mg/dL (70-105); Lipase 36 U/L (8-78); Potassium 3.7 mmol/L (3.5-5.1); Protein, Total 6.4 g/dL (6.0-8.3); Sodium 141 mmol/L (136-145)
--- NOTE | 2020-07-10 16:57 | CT ---
CT ABDOMEN AND PELVIS WITHOUT IV CONTRAST: 07/10/20 INDICATIONS: Flank pain. Abdominal pain. Comparison made to CT abdomen and pelvis 01/10/18. FINDINGS: The lung bases clear. The liver, spleen, pancreas, stomach and duodenum appear unremarkable for an unenhanced study. Adrenal glands normal. Kidneys unremarkable. No hydronephrosis. The urinary bladder is mildly distended and unremarkable. Small bowel loops normal caliber. The appendix is identified and is unremarkable. Stool throughout th e colon. Images of the pelvis show unremarkable uterus. Small right ovarian cyst measuring approximately 1.5 c m. Nonspecific mesenteric and periaortic lymph nodes appear stable. Review of the osseous structures show degenerative disc changes at L5-S1 with broad based disc bulge at this level. IMPRESSION: 1. Moderate volume stool throughout the colon may represent constipation. 2. No acute intra-abdominal process. POS: OFF
== END 2020-07-10 18:00 | disposition home or self-care (01) ==
LOC: MADERS 15:02
DX: K59.00 Constipation, unspecified (principal); B20 Human immunodeficiency virus [HIV] disease; I10 Essential (primary) hypertension; F17.210 Nicotine dependence, cigarettes, uncomplicated; Z79.899 Other long term (current) drug therapy
CPT/HCPCS: 36415; 74176; 80053; 80306; 81003; 81015; 81025; 83690; 85025; 96372; J0500

== ENCOUNTER 2020-08-29 05:33 | Emergency (ER) | payer OTHER ==
[2020-08-29] MEDS ORDERED: Sodium Chloride 0.9% 1,000 ML ONE (06:49)
[2020-08-29] MEDS ORDERED: Sodium Chloride 0.9% 100 ML BAG ONE (06:53)
[2020-08-29 06:58] LABS: #Basophils 0.2 thou/uL (0.0-0.2); #Eosinphils 0.2 thou/uL (0.0-0.7); #Lymphocytes 2.3 thou/uL (1.20-3.40); #Monocytes 0.9 thou/uL (0.11-0.59); #Neutrophils 7.9 thou/uL (1.40-6.50); %Basophils 1.4 % (0.0-1.0); %Eosinophils 1.5 % (0.0-10.0); %Lymphocytes 19.9 % (21.0-51.0); %Monocytes 7.6 % (0.0-10.0); %Neutrophils 69.5 % (42.0-75.0); Hemoglobin 11.7 g/dL (12.0-16.0); Mean Corpuscular HGB CONC 32.2 g/dL (32.0-36.0); Mean Corpuscular Volume 96.3 fL (78.0-98.0); Mean Platelet Volume 8.3 fL (7.4-10.4); Platelet Count 228 thou/uL (130-400); RBC Distribution Width 11.4 % (11.5-14.5); Red Blood Cell (RBC) Count 3.77 mill/uL (4.20-5.40); White Blood Cell (WBC) Count 11.4 thou/uL (4.8-10.8)
[2020-08-29 07:15] LABS: ALT (SGPT) 17 U/L (8-55); AST (SGOT) 36 U/L (5-34); Albumin 4.1 g/dL (3.5-5.0); Alkaline Phosphatase 76 U/L (40-110); Anion Gap 15 mmol/L (10-20); BUN (Urea Nitrogen) 12 mg/dL (7.0-18.7); Bilirubin, Total 0.7 mg/dL (0.2-1.2); Calc. Creatinine Clearance 0 mL/min (70-130); Calcium 8.6 mg/dL (7.8-10.44); Carbon Dioxide 24 mmol/L (22-29); Chloride 103 mmol/L (98-107); Globulin 3.1 g/dL (2.4-3.5); Glucose 71 mg/dL (70-105); Potassium 3.3 mmol/L (3.5-5.1); Protein, Total 7.2 g/dL (6.0-8.3); Sodium 139 mmol/L (136-145)
[2020-08-29 07:23] LABS: Acetaminophen Less than 6.0 mcg/mL (10.0-30.0); Alcohol Less than 10 mg/dL (Less than 10); CK (CPK) 971 U/L (29-168); Salicylate Less than 8.0 mg/dL (15.0-30.0)
[2020-08-29 07:30] LABS: Thyroid Stimulating Hormone 1.2389 uIU/mL (0.35-4.94)
[2020-08-29 07:33] LABS: BHCG - Serum Negative (NEGATIVE); Pregs Control Background? CLEAR/WHITE (CLR/WHITE); Pregs Control Bar Appear? YES (CONTROL BAR)
[2020-08-29 07:54] LABS: Bilirubin Negative (Negative); Blood, Urine Trace (Negative); Clarity Clear (Clear); Glucose, Urine (Dipstick) Negative (Negative); Ketone, Urine 40 mg/dL (Negative); Leukocyte Negative (Negative); Nitrite Negative (Negative); Protein, Urine (Dipstick) Negative (Neg-Trace); Urobilinogen 0.2 mg/dL (Less than 2); pH, Urine 5.5 (5.0-9.0)
[2020-08-29 08:02] LABS: Phencyclidine (PCP) Detected (NotDetected); THC/Cannabinoid Screen Not Detected (NotDetected)
[2020-08-29 08:03] LABS: Amphetamine Detected (NotDetected); Barbiturates Screen Not Detected (NotDetected); Benzodiazepine Screen Not Detected (NotDetected); Cocaine Metabolite Screen Not Detected (NotDetected); Medtox Control Line Valid? VALID (VALID); Methadone Not Detected (NotDetected); Methamphetamine Detected (NotDetected); Opiate Screen Not Detected (NotDetected); Oxycodone Screen Not Detected (NotDetected); Tricyclic Screen Not Detected (NotDetected)
[2020-08-29 08:04] LABS: Bacteria/HPF Rare-Few HPF (None Seen); RBC/HPF 0-3 HPF (0-3); Squamous Epithelial 0-3 HPF (0-3); WBC/HPF 0-3 HPF (0-3)
[2020-08-29] MEDS ORDERED: Iopamidol 370 76% 100 ML VIAL ONE (10:11)
[2020-08-29] MEDS ORDERED: Iopamidol 370 76% 125 ML VIAL FS ONE (10:12)
== END 2020-08-29 10:33 | disposition home or self-care (01) ==
LOC: MADERS 05:33
DX: T43.221A Poisoning by selective serotonin reuptake inhibitors, accidental (unintentional), initial encounter (principal); R05 Cough; R07.89 Other chest pain; B20 Human immunodeficiency virus [HIV] disease; I10 Essential (primary) hypertension; F17.210 Nicotine dependence, cigarettes, uncomplicated; Z79.899 Other long term (current) drug therapy; Y04.8XXA Assault by other bodily force, initial encounter
CPT/HCPCS: 70450; 70498; 71260; 74177; 80053; 80306; 80307; 81003; 81015; 82550; 84443; 84703; 85025; 86850; 86900; 86901; J3490; J7050; Q9967

== ENCOUNTER 2020-11-03 17:58 | Emergency (ER) | payer OTHER ==
[2020-11-04 16:16] LABS: SARS-CoV-2 PCR by NAA Not Detected (NotDetected)
== END 2020-11-03 18:58 | disposition home or self-care (01) ==
LOC: MADERS 17:58
DX: J06.9 Acute upper respiratory infection, unspecified (principal); B34.9 Viral infection, unspecified; Z20.822 Contact with and (suspected) exposure to COVID-19; Z21 Asymptomatic human immunodeficiency virus [HIV] infection status; I10 Essential (primary) hypertension; F17.210 Nicotine dependence, cigarettes, uncomplicated
CPT/HCPCS: 71046; 87635; U0003; U0005

== ENCOUNTER 2021-03-03 10:19 | Emergency (ER) | payer OTHER ==
[2021-03-03] MEDS ORDERED: Aspirin Chewable 81 MG TAB ONE (10:49)
[2021-03-03] MEDS ORDERED: Nitroglycerin 2% Ointment 1 INCH/1 GM Packet ONE (10:49)
[2021-03-03 11:39] LABS: ALT (SGPT) 12 U/L (8-55); AST (SGOT) 16 U/L (5-34); Albumin 4.1 g/dL (3.5-5.0); Alkaline Phosphatase 59 U/L (40-110); Anion Gap 15 mmol/L (10-20); BUN (Urea Nitrogen) 8 mg/dL (7.0-18.7); Bilirubin, Total 0.2 mg/dL (0.2-1.2); CK (CPK) 163 U/L (29-168); Calc. Creatinine Clearance 0 mL/min (70-130); Calcium 9.8 mg/dL (7.8-10.44); Carbon Dioxide 22 mmol/L (22-29); Chloride 106 mmol/L (98-107); Globulin 3.4 g/dL (2.4-3.5); Glucose 83 mg/dL (70-105); Potassium 3.7 mmol/L (3.5-5.1); Protein, Total 7.5 g/dL (6.0-8.3); Sodium 139 mmol/L (136-145)
[2021-03-03 11:40] LABS: CKMB 1.3 ng/mL (0-6.6)
[2021-03-03 11:43] LABS: Band 2 % (5-11); Hemoglobin 13.3 g/dL (12.0-16.0); Lymphocytes 48 % (21-51); MDiff Complete? YES; Mean Corpuscular HGB CONC 31.9 g/dL (32.0-36.0); Mean Corpuscular Hemoglobin 32.5 pg (27.0-31.0); Mean Corpuscular Volume 101.9 fL (78.0-98.0); Mean Platelet Volume 8.7 fL (7.4-10.4); Monocytes 1 % (0-10); Neutrophil 36 % (42-75); Platelet Count 353 thou/uL (130-400); Platelet Morphology Comment Appears Adequate; RBC Distribution Width 12.2 % (11.5-14.5); RBC Morphology Normal; Reactive Lymphocytes 13 % (0-10); Red Blood Cell (RBC) Count 4.09 mill/uL (4.20-5.40); White Blood Cell (WBC) Count 7.1 thou/uL (4.8-10.8)
== END 2021-03-03 12:47 | disposition home or self-care (01) ==
LOC: MADERS 10:19
DX: I16.0 Hypertensive urgency (principal); I10 Essential (primary) hypertension; F15.10 Other stimulant abuse, uncomplicated; Z21 Asymptomatic human immunodeficiency virus [HIV] infection status; F17.210 Nicotine dependence, cigarettes, uncomplicated
CPT/HCPCS: 36415; 71045; 80053; 82550; 82553; 84484; 85025; 93005; 94760

== ENCOUNTER 2021-05-23 14:12 | Emergency (ER) | payer OTHER ==
[2021-05-23 16:05] LABS: Eosinophils 4 % (0-10); Hemoglobin 11.9 g/dL (12.0-16.0); Lymphocytes 49 % (21-51); MDiff Complete? YES; Macrocytosis SLIGHT = 6-15 cells (100X) (0-5/hpf); Mean Corpuscular HGB CONC 31.1 g/dL (32.0-36.0); Mean Corpuscular Hemoglobin 32.2 pg (27.0-31.0); Mean Corpuscular Volume 103.7 fL (78.0-98.0); Mean Platelet Volume 6.3 fL (7.4-10.4); Monocytes 3 % (0-10); Neutrophil 35 % (42-75); Platelet Count 197 thou/uL (130-400); Platelet Morphology Comment Appears Adequate; RBC Distribution Width 12.8 % (11.5-14.5); Reactive Lymphocytes 9 % (0-10); Red Blood Cell (RBC) Count 3.71 mill/uL (4.20-5.40); White Blood Cell (WBC) Count 7.2 thou/uL (4.8-10.8)
[2021-05-23 16:06] LABS: ALT (SGPT) 12 U/L (8-55); AST (SGOT) 16 U/L (5-34); Albumin 3.7 g/dL (3.5-5.0); Alkaline Phosphatase 48 U/L (40-110); Anion Gap 14 mmol/L (10-20); BUN (Urea Nitrogen) 9 mg/dL (7.0-18.7); Bilirubin, Total 0.4 mg/dL (0.2-1.2); CK (CPK) 339 U/L (29-168); Calc. Creatinine Clearance 0 mL/min (70-130); Calcium 8.6 mg/dL (7.8-10.44); Carbon Dioxide 25 mmol/L (22-29); Chloride 110 mmol/L (98-107); Globulin 2.7 g/dL (2.4-3.5); Glucose 106 mg/dL (70-105); Potassium 3.5 mmol/L (3.5-5.1); Protein, Total 6.4 g/dL (6.0-8.3); Sodium 145 mmol/L (136-145)
== END 2021-05-23 17:02 | disposition home or self-care (01) ==
LOC: MADERS 14:12
DX: E86.0 Dehydration (principal); F12.20 Cannabis dependence, uncomplicated; F15.10 Other stimulant abuse, uncomplicated; F16.10 Hallucinogen abuse, uncomplicated; Z79.899 Other long term (current) drug therapy
CPT/HCPCS: 36415; 71045; 80053; 82550; 83880; 84484; 85025; 93005

== ENCOUNTER 2021-12-23 02:25 | Emergency (ER) | payer OTHER ==
[2021-12-23] MEDS ORDERED: Acetaminophen 325 MG TAB ONE (03:10)
== END 2021-12-23 03:12 | disposition home or self-care (01) ==
LOC: MADERS 02:25
DX: M79.671 Pain in right foot (principal); M79.672 Pain in left foot; M79.89 Other specified soft tissue disorders; I10 Essential (primary) hypertension; Z21 Asymptomatic human immunodeficiency virus [HIV] infection status; Z79.899 Other long term (current) drug therapy
CPT/HCPCS: 99283

== ENCOUNTER 2022-01-09 11:12 | Emergency (ER) | payer OTHER ==
[2022-01-09 12:22] LABS: Bilirubin Negative (Negative); Blood, Urine Trace (Negative); Clarity Hazy (Clear); Glucose, Urine (Dipstick) Negative (Negative); Ketone, Urine Negative (Negative); Leukocyte Negative (Negative); Nitrite Negative (Negative); Protein, Urine (Dipstick) Negative (Neg-Trace); Urobilinogen 0.2 mg/dL (Less than 2); pH, Urine 7.5 (5.0-9.0)
[2022-01-09 12:29] LABS: Bacteria/HPF Rare-Few HPF (None Seen); RBC/HPF 0-3 HPF (0-3); Squamous Epithelial 0-3 HPF (0-3); WBC/HPF 0-3 HPF (0-3)
[2022-01-09 12:43] LABS: Pregnancy Test - Urine (BHCG) Negative (Negative); Pregu Control Background? CLEAR/WHITE (CLR/WHITE); Pregu Control Bar Appear? YES (CONTROL BAR)
[2022-01-09 12:51] LABS: Amphetamine Not Detected (NotDetected); Benzodiazepine Screen Not Detected (NotDetected); Cocaine Metabolite Screen Not Detected (NotDetected); Methadone Not Detected (NotDetected); Methamphetamine Detected (NotDetected); Opiate Screen Not Detected (NotDetected); Phencyclidine (PCP) Detected (NotDetected); THC/Cannabinoid Screen Not Detected (NotDetected); Tricyclic Screen Not Detected (NotDetected)
[2022-01-09 12:52] LABS: Barbiturates Screen Not Detected (NotDetected); Medtox Control Line Valid? VALID (VALID); Oxycodone Screen Not Detected (NotDetected)
[2022-01-09] MEDS ORDERED: Lidocaine 1% (PF) 30 ML VIAL ONE (12:58)
[2022-01-09] MEDS ORDERED: cefTRIAXone\\ROCEPHIN 1 GM VIAL ONE (12:58)
== END 2022-01-09 13:29 | disposition home or self-care (01) ==
LOC: MADERS 11:12
DX: N10 Acute pyelonephritis (principal); F19.10 Other psychoactive substance abuse, uncomplicated; I10 Essential (primary) hypertension; F17.210 Nicotine dependence, cigarettes, uncomplicated; Z21 Asymptomatic human immunodeficiency virus [HIV] infection status; Z79.899 Other long term (current) drug therapy
CPT/HCPCS: 80306; 81003; 81015; 81025; 96372; 99283; J0696; J2001

== ENCOUNTER 2022-05-17 07:28 | Emergency (ER) | payer OTHER ==
[2022-05-17] MEDS ORDERED: Ondansetron ODT 4 MG TAB ONE (07:58)
[2022-05-17 08:35] LABS: Band 4 % (5-11); Hemoglobin 14.8 g/dL (12.0-16.0); Lymphocytes 28 % (21-51); MDiff Complete? YES; Mean Corpuscular Hemoglobin 32.3 pg (27.0-31.0); Mean Platelet Volume 8.4 fL (7.4-10.4); Monocytes 4 % (0-10); Neutrophil 62 % (42-75); Platelet Count 358 10x3/uL (130-400); Platelet Morphology Comment Appears Adequate; RBC Distribution Width 11.7 % (11.5-14.5); RBC Morphology Normal; Reactive Lymphocytes 2 % (0-10); Red Blood Cell (RBC) Count 4.57 mill/uL (4.20-5.40); White Blood Cell (WBC) Count 5.9 10x3/uL (4.8-10.8)
[2022-05-17 08:37] LABS: BHCG - Serum Negative (NEGATIVE); Pregs Control Background? CLEAR/WHITE (CLR/WHITE); Pregs Control Bar Appear? YES (CONTROL BAR)
[2022-05-17 08:42] LABS: ALT (SGPT) 11 U/L (8-55); AST (SGOT) 16 U/L (5-34); Albumin 4.1 g/dL (3.5-5.0); Alkaline Phosphatase 66 U/L (40-110); Anion Gap 15 mmol/L (10-20); BUN (Urea Nitrogen) 6 mg/dL (7.0-18.7); Bilirubin, Total 0.3 mg/dL (0.2-1.2); Calc. Creatinine Clearance 0 mL/min (70-130); Calcium 9.7 mg/dL (7.8-10.44); Carbon Dioxide 28 mmol/L (22-29); Chloride 102 mmol/L (98-107); Estimated GFR 105; Globulin 3.8 g/dL (2.4-3.5); Glucose 86 mg/dL (70-105); Potassium 3.7 mmol/L (3.5-5.1); Protein, Total 7.9 g/dL (6.0-8.3); Sodium 141 mmol/L (136-145)
[2022-05-17 08:43] LABS: Acetaminophen Less than 10.0 mcg/mL (10.0-30.0); Alcohol Less than 10 mg/dL (Less than 10); Salicylate Less than 8.0 mg/dL (15.0-30.0)
[2022-05-17] MEDS ORDERED: Iopamidol 370 76% 100 ML VIAL ONE (08:51)
[2022-05-17] MEDS ORDERED: Aspirin 325 MG TAB ONE (09:37)
[2022-05-17 09:43] LABS: CKMB 1.2 ng/mL (0-6.6)
[2022-05-17 10:16] LABS: INR-International Normal Ratio 0.9; Prothrombin Time 12.3 sec (12.0-14.7)
[2022-05-17 10:17] LABS: PTT 24.7 sec (22.9-36.1)
[2022-05-17] MEDS ORDERED: Heparin 10,000 UNITS/ 10 ML VIAL ONE (10:35)
[2022-05-17] MEDS ORDERED: Heparin 25,000 units/D5W 500 ML ONE (10:35)
== END 2022-05-17 13:12 | disposition short-term general hospital (02) ==
LOC: MADERS 07:28
DX: I21.4 Non-ST elevation (NSTEMI) myocardial infarction (principal); I10 Essential (primary) hypertension; F17.210 Nicotine dependence, cigarettes, uncomplicated; Z79.899 Other long term (current) drug therapy
CPT/HCPCS: 36415; 71045; 74177; 80053; 80307; 82553; 83690; 84484; 84703; 85025; 85610; 85730; 93005; 96365; 96366; 96376; J1644; Q0162; Q9967

== ENCOUNTER 2023-07-27 11:22 | Emergency (ER) | payer OTHER ==
[2023-07-27] MEDS ORDERED: Acetaminophen 500 MG TAB ONE (11:34)
[2023-07-27 12:27] LABS: SARS-CoV-2 E Target Negative; SARS-CoV-2 N2 Target Negative; SARS-CoV-2 NAA Rapid Test Not Detected (NotDetected); SARS-CoV-2 RdRP gene Negative
== END 2023-07-27 13:05 | disposition home or self-care (01) ==
LOC: MADERS 11:22
DX: J11.1 Influenza due to unidentified influenza virus with other respiratory manifestations (principal); I10 Essential (primary) hypertension; F17.210 Nicotine dependence, cigarettes, uncomplicated; Z79.899 Other long term (current) drug therapy
CPT/HCPCS: 87804; 99283; U0002

== ENCOUNTER 2023-10-25 13:33 | Emergency (ER) | payer OTHER ==
[2023-10-25] MEDS ORDERED: Boostrix 0.5 ML (Tdap) VIAL (>/=7 yrs of age) ONE (14:33)
[2023-10-25] MEDS ORDERED: Amoxicillin/Potassium Clav 875 MG TAB ONE (14:33)
== END 2023-10-25 14:55 | disposition home or self-care (01) ==
LOC: MADERS 13:33
DX: S81.851A Open bite, right lower leg, initial encounter (principal); I10 Essential (primary) hypertension; F17.210 Nicotine dependence, cigarettes, uncomplicated; Z79.899 Other long term (current) drug therapy; W54.0XXA Bitten by dog, initial encounter
CPT/HCPCS: 90471; 90715

== ENCOUNTER 2023-11-16 00:27 | Emergency (ER) | payer OTHER | END 2023-11-16 00:51 | disposition home or self-care (01) | LOC: MADERS 00:27 | DX: L03.116 Cellulitis of left lower limb (principal); B20 Human immunodeficiency virus [HIV] disease; I10 Essential (primary) hypertension; F20.9 Schizophrenia, unspecified; F31.9 Bipolar disorder, unspecified; F17.210 Nicotine dependence, cigarettes, uncomplicated; Z79.899 Other long term (current) drug therapy | CPT/HCPCS: 99283 ==

== ENCOUNTER 2024-01-11 03:19 | Emergency (ER) | payer OTHER ==
[2024-01-11 03:54] LABS: Hematocrit 36.9 % (36.0-47.0); Hemoglobin 11.6 g/dL (12.0-16.0); Mean Corpuscular HGB CONC 31.6 g/dL (32.0-36.0); Mean Corpuscular Hemoglobin 32.1 pg (27.0-31.0); Mean Corpuscular Volume 101.6 fl (78.0-98.0); Mean Platelet Volume 7.2 fL (7.4-10.4); Platelet Count 254 10x3/uL (130-400); RBC Distribution Width 12.5 % (11.5-14.5); Red Blood Cell (RBC) Count 3.63 mill/uL (4.20-5.40); White Blood Cell (WBC) Count 6.8 10x3/uL (4.8-10.8)
[2024-01-11 03:56] LABS: Lymphocytes 35 % (21-51); MDiff Complete? YES; Monocytes 11 % (0-10); Neutrophil 54 % (42-75)
[2024-01-11] MEDS ORDERED: Acetaminophen 500 MG TAB ONE (03:58)
[2024-01-11 04:11] LABS: ALT (SGPT) 19 U/L (8-55); AST (SGOT) 25 U/L (5-34); Albumin 3.9 g/dL (3.5-5.0); Alcohol Less than 10.0 mg/dL (Less than 10); Alkaline Phosphatase 53 U/L (40-110); Anion Gap 15 mmol/L (10-20); BUN (Urea Nitrogen) 17 mg/dL (7.0-18.7); Bilirubin, Total 0.4 mg/dL (0.2-1.2); Calc. Creatinine Clearance 0 mL/min (70-130); Calcium 9.5 mg/dL (7.8-10.44); Carbon Dioxide 19 mmol/L (22-29); Chloride 113 mmol/L (98-107); Estimated GFR 52; Globulin 3.5 g/dL (2.4-3.5); Glucose 85 mg/dL (70-105); Potassium 3.9 mmol/L (3.5-5.1); Protein, Total 7.4 g/dL (6.0-8.3); Sodium 143 mmol/L (136-145)
[2024-01-11 04:34] LABS: Bilirubin Negative (Negative); Blood, Urine Small (Negative); Clarity Clear (Clear); Glucose, Urine (Dipstick) Negative (Negative); Ketone, Urine 40 mg/dL (Negative); Leukocyte Negative (Negative); Nitrite Negative (Negative); Protein, Urine (Dipstick) Negative (Neg-Trace); Urobilinogen 0.2 mg/dL (Less than 2); pH, Urine 5.5 (5.0-9.0)
[2024-01-11 04:40] LABS: CAUTI Indications for Culture Pelvic or flank pain; RBC/HPF None Seen HPF (0-3); Specific Gravity, Urine 1.026 (1.002-1.036); Squamous Epithelial 0-3 HPF (0-3); WBC/HPF None Seen HPF (0-3)
[2024-01-11 04:41] LABS: Amphetamine Detected (NotDetected); Barbiturates Screen Not Detected (NotDetected); Benzodiazepine Screen Not Detected (NotDetected); Cocaine Metabolite Screen Not Detected (NotDetected); Methadone Not Detected (NotDetected); Methamphetamine Detected (NotDetected); Opiate Screen Not Detected (NotDetected); Oxycodone Screen Not Detected (NotDetected); Phencyclidine (PCP) Detected (NotDetected); THC/Cannabinoid Screen Not Detected (NotDetected); Tricyclic Screen Not Detected (NotDetected); Urine Culture Reflex No No
== END 2024-01-11 04:58 | disposition home or self-care (01) ==
LOC: MADERS 03:19
DX: M76.9 Unspecified enthesopathy, lower limb, excluding foot (principal); I10 Essential (primary) hypertension; F15.90 Other stimulant use, unspecified, uncomplicated; F16.10 Hallucinogen abuse, uncomplicated; F17.210 Nicotine dependence, cigarettes, uncomplicated; Z79.899 Other long term (current) drug therapy
CPT/HCPCS: 36415; 80053; 80306; 80307; 81001; 85025; 99283

== ENCOUNTER 2024-06-05 19:21 | Emergency (ER) | payer OTHER ==
[2024-06-05 19:54] LABS: Eosinophils 1 % (0-10); Hematocrit 34.7 % (36.0-47.0); Hemoglobin 11.1 g/dL (12.0-16.0); Lymphocytes 45 % (21-51); MDiff Complete? YES; Macrocytosis SLIGHT = 6-15 cells (100X) (0-5/hpf); Mean Corpuscular Volume 103.3 fl (78.0-98.0); Mean Platelet Volume 7.8 fL (7.4-10.4); Monocytes 8 % (0-10); Neutrophil 46 % (42-75); Ovalocytes SLIGHT = 2-5 cells (100X) (0-1/hpf); Platelet Adequacy Comment Appears Adequate; Platelet Count 327 10x3/uL (130-400); RBC Distribution Width 12.4 % (11.5-14.5); Red Blood Cell (RBC) Count 3.36 mill/uL (4.20-5.40); White Blood Cell (WBC) Count 7.7 10x3/uL (4.8-10.8)
[2024-06-05 20:01] LABS: Phosphorus 3.4 mg/dL (2.3-4.7)
[2024-06-05 20:03] LABS: ALT (SGPT) 18 U/L (8-55); AST (SGOT) 21 U/L (5-34); Alkaline Phosphatase 54 U/L (40-110); Anion Gap 12 mmol/L (10-20); BUN (Urea Nitrogen) 12 mg/dL (7.0-18.7); Bilirubin, Total 0.3 mg/dL (0.2-1.2); CK (CPK) 260 U/L (29-168); Calc. Creatinine Clearance 0 mL/min (70-130); Calcium 8.9 mg/dL (7.8-10.44); Carbon Dioxide 25 mmol/L (22-29); Chloride 108 mmol/L (98-107); Estimated GFR 53; Globulin 2.9 g/dL (2.4-3.5); Glucose 115 mg/dL (70-105); Magnesium 2.1 mg/dL (1.6-2.6); Potassium 3.6 mmol/L (3.5-5.1); Protein, Total 6.9 g/dL (6.0-8.3); Sodium 141 mmol/L (136-145)
[2024-06-05] MEDS ORDERED: Metoprolol Tartrate 50 MG TAB ONE (20:39)
== END 2024-06-05 20:47 | disposition home or self-care (01) ==
LOC: MADERS 19:21
DX: R25.2 Cramp and spasm (principal); F15.20 Other stimulant dependence, uncomplicated; E05.90 Thyrotoxicosis, unspecified without thyrotoxic crisis or storm; I10 Essential (primary) hypertension; F17.210 Nicotine dependence, cigarettes, uncomplicated; Z21 Asymptomatic human immunodeficiency virus [HIV] infection status
CPT/HCPCS: 80053; 82550; 83735; 84100; 84443; 85025; 99283